=== PATIENT | male | born 1990 | race Caucasian/White ===

== ENCOUNTER 2019-12-26 19:15 | Emergency (ER) | payer BC, SELFPAY ==
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
[2019-12-27 02:13] VITALS: BP 154/86; TEMP 98.2; O2SAT 96
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
== END 2019-12-26 21:01 | disposition home or self-care (01) ==
LOC: ER 19:15
DX: S50.811A Abrasion of right forearm, initial encounter (principal); V49.40XA Driver injured in collision with unspecified motor vehicles in traffic accident, initial encounter; Z72.0 Tobacco use
CPT/HCPCS: 70450; 71260; 72125; 74177; 99284; Q9967

== ENCOUNTER 2019-12-26 23:06 | Emergency (ER) | payer SELFPAY ==
--- OUTSIDE RECORDS SUMMARY | 2019-12-26 23:07 | XMS REPORT ---
:1990 [facility] Address [address] [place] [address] Dr. Cervantes [address] [place] [id number] Care Team Providers Name Role Phone Unavailable Unavailable Unavailable Problems This patient has no known problems. Allergies, Adverse Reactions, Alerts This patient has no known allergies or adverse reactions. Medications This patient has no known medications.
--- OUTSIDE RECORDS SUMMARY | 2019-12-26 23:07 | XMS REPORT | Summary of Care ---
:1990 Author Organization [facility] Address [address] [place] [id number] Care Team Providers Name Role Phone Pcp, Patient Does Not Have A Primary Care Provider Reason for Visit Reason Comments Cough x 2days Body Aches Chills Encounter Details Date Type Department Care Team Description 12/10/2019 Urgent Care [facility] Unknown, Attending Influenza B (Primary Dx); Urgent Care Robyn Chin PA-C [address] [place] [address] [address] [place] [address] Fever, unspecified fever cause [address] [facility] [place] [address] Allergies No Known Allergiesdocumented as of this encounter (statuses as of 12/10/2019) Medications Medication Sig Dispensed Refills Start Date End Date Status oseltamivir 75 mg Take 1 capsule 10 capsule 0 12/10/2019 12/15/2019 Active capsuleIndications: by mouth 2 (two) Fever, unspecified times daily for fever cause, 5 days. Influenza B documented as of this encounter (statuses as of 12/10/2019) Active Problems No known active problemsdocumented as of this encounter (statuses as of 2019) Social History Tobacco Use Types Packs/Day Years Used Date Current Some Day Smoker Cigarettes Smokeless Tobacco: Never Used Alcohol Use Drinks/Week oz/Week Comments No Sex Assigned at Date Recorded Not on file Job Start Date Occupation Industry Not on file Not on file Not on file Travel History Travel Start Travel End No recent travel history available. documented as of this encounter Last Filed Vital Signs Vital Sign Reading Time Taken Comments Blood Pressure 152/75 12/10/2019 9:08 PM [employer] Pulse 94 12/10/2019 9:08 PM [employer] Temperature 37.1 C (98.8 F) 12/10/2019 9:08 PM [employer] Respiratory Rate 17 12/10/2019 9:08 PM [employer] Oxygen Saturation 97% 12/10/2019 9:08 PM [employer] Inhaled Oxygen Concentration - - Weight 79.2 kg (174 lb 8 oz) 12/10/2019 9:08 PM [employer] Height 175.3 cm (5' 9") 12/10/2019 9:08 PM [employer] Body Mass Index 25.77 12/10/2019 9:08 PM [employer] documented in this encounter Patient Instructions Patient InstructionsRobyn Chin PA-C - 12/10/2019 9:00 PM CST Viral Upper Respiratory Illness (Adult) You have a viral upper respiratory illness (URI), which is another term for the common cold. This illness is contagious during the first few days. It is spread through the air by coughing and sneezing.It may also be spread by direct contact (touching the sick person and then touching your own eyes, nose, or mouth). Frequent handwashing will decrease risk of spread. Most viral illnesses go away within 7 to 10 days with rest and simple home remedies. Sometimes the illness may last for several weeks. Antibiotics will not kill a virus, and they are generally not prescribed for this condition. Home care If symptoms are severe, rest at home for the first 2 to 3 days. When you resume activity, don't let yourself get too tired. Don't smoke. If you need help stopping, talk with your healthcare provider. Avoid being exposed to cigarette smoke (yours or others). You may use acetaminophen or ibuprofen to control pain and fever, unless another medicine was prescribed.If you have chronic liver or kidney disease, have ever had a stomach ulcer or gastrointestinal bleeding, or are taking blood- thinning medicines, talk with your healthcare provider before usingthese medicines. Aspirin should never be given to anyone under 18 years of age who is ill with a viral infection or fever. It may cause severe liver or brain damage. Your appetite may be poor, so a light diet is fine. Stay well hydrated by drinking 6 to 8 glassesof fluids per day (water, soft drinks, juices, tea, or soup). Extra fluids will help loosen secretions in the nose and lungs. Butu-icu-lrqhryp cold medicines will not shorten the length of time youre sick, but they may be helpful for the following symptoms: cough, sore throat, and nasal and sinus congestion. If you takeprescription medicines, ask your healthcare provider or pharmacist which nqii-was-ohjioex medicines are safe to use. (Note: Don't use decongestants if you have high blood pressure.) Follow-up care Follow up with your healthcare provider, or as advised. When to seek medical advice Call your healthcare provider right away if any of these occur: Cough with lots of colored sputum (mucus) Severe headache; face, neck, or ear pain Difficultyswallowingdue to throat pain Fever of 100.4F (38C) or higher, or as directed by your healthcare provider Call 911 Call 911 if any of these occur: Chest pain, shortness of breath, wheezing, or difficulty breathing Coughing up blood Very severe pain with swallowing, especially if it goes along with a muffled voice [employer] last reviewed this educational content on 04/03/201819993606-3828 [employer]. [address] [place] [address]. All rights reserved. This information is not intended as a substitute for professional medical care. Always follow your healthcare professional's instructions. Influenza (Adult) Influenza is also called the flu. It's a viral illness that affects the air passages of your lungs. It's different from the common cold. The flu can easily be passed from one to person to another. It may be spread through the air by coughing and sneezing. Or it can be spread by touching the sick person and then touching your own eyes, nose, or mouth. The flu starts 1 to 3 days after you are exposed to the flu virus. It may last for 1 to 2 weeks butsometimes people feel tired or fatigued for many weeks afterward. You usually dont need to take antibiotics unless you are at high risk for or have a complication . This might be an ear or sinus infection or pneumonia. Symptoms of the flu may be mild or severe. They can include extreme tiredness ( wanting to stay in bed all day), chills, fevers, muscle aches, soreness with eye movement, headache, and a dry, hacking cough. Antiviral medicine for the flu is available by prescription. If you start taking it within 48 hours,it may help reduce how long your symptoms last and how severe they are. Your provider may do a test to find out if you have influenza and which strain you have. Home care Follow these guidelines when caring for yourself at home: Stay away from cigarette smoke, whether yours or other peoples. Acetaminophen or ibuprofen will help ease your fever, muscle aches, and headache. Dont give aspirin to anyone younger than 18 who has the flu. This can cause a serious condition called Kareem syndrome. Nausea, loose stools, and loss of appetite are common with the flu. Eat light meals. Drink 6 to 8glasses of liquids every day. Good choices are water, sport drinks, soft drinks without caffeine, juices, tea, and soup. Extra fluids will also help loosen secretions in your nose and lungs. Ydro-ylh-ayzjzde cold medicines will not make the flu go away faster. But the medicines may help with coughing, sore throat, and congestion in your nose and sinuses. Dont use a decongestant if you have high blood pressure. Stay home until your fever has been gone for at least 24 hours without using medicine to reduce fever. Follow-up care Follow up with your healthcare provider, or as advised, if you are not getting better over the next week. If you are age 65 or older, talk with your provider about getting a pneumococcal vaccine every 5 years. You should also get this vaccine if you have chronic asthma or COPD. All adults should get a flu vaccine every fall. Ask your provider about this. When to seek medical advice Call your healthcare provider right away if you have the flu and any of these occur: Cough with lots of colored mucus (sputum) or blood in your mucus Chest pain, shortness of breath, wheezing, or trouble breathing Severe headache, or face, neck, or ear pain New rashwith fever Fever of 100.4F (38C)or higher, or asdirected by your healthcare provider Confusion, behavior change, or seizure Severe weakness or dizziness You get a newfever or cough after getting better for a few days Also call your provider if you have flu symptoms and have a weakened immune system or are taking medicines that can weaken your immune system. These include steroids and certain anti-inflammatory medicines. [employer] last reviewed this educational content on 08/03/201919991003-2116 [employer]. [address] [place] [address], [place] [address]. All rights reserved. This information is not intended as a substitute for professional medical care. Always follow your healthcare professional's instructions. GRADER documented in this encounter Progress Notes Robyn Chin PA-C - 12/10/2019 9:00 PM CST Cc: Chief Complaint Patient presents with Cough x 2days Body Aches Chills Akbar Vadim Hidalgo is a 29 year old male coming in with concern of body aches, chills, and cough that began 2 days ago. Patient is uncertain if he has a fever due to not having a thermometer. Patient denies any sick contacts. Patient reports having some vomiting and nausea. Patient denies diarrhea. Patient denies any ear pain, sob, chest pain, dyspnea. Patient has not taken any medications. HPI Allergies Akbar has No Known Allergies. Medications No outpatient medications prior to visit. No facility-administered medications prior to visit. Histories No past medical history on file. No past surgical history on file. Social History Socioeconomic History Marital status: Spouse name: Not on file Number of children: Not on file Years of education: Not on file Highest education level: Not on file Occupational History Not on file Social Needs Financial resource strain: Not on file Food insecurity: Worry: Not on file Inability: Not on file Transportation needs: Medical: Not on file Non-medical: Not on file Tobacco Use Smoking status: Current Some Day Smoker Types: Cigarettes Smokeless tobacco: Never Used Substance and Sexual Activity Alcohol use: No Drug use: No Sexual activity: Not on file Lifestyle Physical activity: Days per week: Not on file Minutes per session: Not on file Stress: Not on file Relationships Social connections: Talks on phone: Not on file Gets together: Not on file Attends [employer] service: Not on file Active member of club or organization: Not on file Attends meetings of clubs or organizations: Not on file Relationship status: Not on file Intimate partner violence: Fear of current or ex partner: Not on file Emotionally abused: Not on file Physically abused: Not on file Forced sexual activity: Not on file Other Topics Concern Not on file Social History Narrative Not on file Family History Problem Relation Age of Onset No Significant Medical Problems Mother Heart Father Hypertension Father [place] (myocardial infarction) Father Review of Systems Constitutional: Positive for chills. Negative for fatigue and fever. HENT: Negative for congestion, ear pain, rhinorrhea, sinus pressure, sneezing and sore throat. Eyes: Negative for pain. Respiratory: Positive for cough. Negative for chest tightness, shortness of breath and wheezing. Gastrointestinal: Positive for nausea and vomiting. Negative for abdominal pain , constipation and diarrhea. Genitourinary: Negative for dysuria. Musculoskeletal: Negative for arthralgias. Skin: Negative for rash. Neurological: Negative for weakness and headaches. Psychiatric/Behavioral: Negative for suicidal ideas. The patient is not nervous/ anxious. Vital Signs BP (!) 152/75 | Pulse 94 | Temp 37.1 C (98.8 F) (Oral) | Resp 17 | Ht 5 ' 9" (1.753 m) | Wt 174 lb 8 oz (79.2 kg) | SpO2 97% | BMI 25.77 kg/m Physical Exam Constitutional: He appears well-developed and well-nourished. HENT: Head: Normocephalic and atraumatic. Right Ear: External ear normal. Left Ear: External ear normal. Nose: Mucosal edema and rhinorrhea present. Mouth/Throat: Posterior oropharyngeal edema and posterior oropharyngeal erythema present. Eyes: Pupils are equal, round, and reactive to light. Conjunctivae are normal. Neck: Normal range of motion. Cardiovascular: Normal rate, regular rhythm and normal heart sounds. Pulmonary/Chest: Effort normal and breath sounds normal. Abdominal: Soft. Psychiatric: He has a normal mood and affect. Assessment/Plan Influenza B (primary encounter diagnosis) Fever, unspecified fever cause Plan: POCT FLU A AND B (MOLECULAR) Rx tamiflu - Discussed flu results & treatment plan with pt. All questions & concerns were addressed. - Pt advised to perform good frequent hand hygiene with soap and water, or use alcohol hand rubs, - Pt advised to stay away from people you know are sick - Pt advised of benefit/risk associated with getting the flu vaccine every year - Pt advised to stay home, get plenty of rest, and drink plenty of fluids. - Reviewed with patient potential side effects, drug interactions, risk, and benefits of taking prescriptions as ordered as prescribed - Pt was advised that he/she can take Tylenol or ibuprofen to relieve fever and aches as per label recommendations. - Pt advised to follow-up with the PCP within 1 week or sooner. Stressed importance of follow-up. - Pt advised to return to Urgent Care or to go to the nearest Emergency Department for any new, worsening, persistent, or concerning symptoms. - Pt verbalized understanding of all instructions. This visit did not involve counseling and coordination that comprised more than 50% of the visit time. Robyn Chin PA-C 12/10/2019 9:13 PM Jolene Simpson RN - 12/10/2019 9:00 PM CST Akbar Hidalgo is a 29 year old male in office for the following: Chief Complaint Patient presents with Cough x 2days Body Aches Chills took a Tylenol and Tamiflu before arrival to urgent care. All vitals taken. Allergies reviewed. All medications reviewed. Fall risk assessed. Level of pain 0. [facility] #[id number] - [address] [place] [facility] [employer] [place] Jolene Castrejon RN 12/10/2019 9:10 PM documented in this encounter Plan of Treatment Health Maintenance Due Date Last Done Comments VARICELLA VACCINES (1 of 2 - 2-dose childhood series) 1993 PNEUMOCOCCAL 0-64 YEARS COMBINED SERIES (1 of 1 - 1998 PPSV23) DTaP,Tdap,and Td Vaccines (1 - Tdap) 2003 INFLUENZA VACCINE (#1) 2019 documented as of this encounter Procedures Procedure Name Priority Date/Time Associated Diagnosis Comments POCT FLU A AND B Routine 12/10/2019 9:10 PM Fever, unspecified Results for this (MOLECULAR) [employer] fever cause procedure are in the results section. documented in this encounter Results POCT FLU A AND B (MOLECULAR) (12/10/2019 9:10 PM DOCK [employer]ER) POCT INFLUENZA A n/a Negative - Negative POCT INFLUENZA B pos Negative - Negative Specimen Swab Narrative Performed At [facility] and interpretation of all internal controls documented in this encounter Visit Diagnoses Diagnosis Influenza B - Primary Influenza with other respiratory manifestations Fever, unspecified fever cause documented in this encounter
[2019-12-27] MEDS ORDERED: HYDROCODONE/APAP 5/325 MG TAB ONE (01:17)
[2019-12-27] MEDS ORDERED: ONDANSETRON 4 MG (ODT) TAB ONE (01:17)
[2019-12-27] MEDS ORDERED: CYCLOBENZAPRINE 10 MG TAB ONE (01:17)
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
[2019-12-27 05:13] VITALS: TEMP 98.2
[2019-12-27 05:15] VITALS: BP 130/71; O2SAT 99
== END 2019-12-27 01:51 | disposition home or self-care (01) ==
LOC: ER 23:06
DX: R10.30 Lower abdominal pain, unspecified (principal); R19.7 Diarrhea, unspecified; V89.2XXA Person injured in unspecified motor-vehicle accident, traffic, initial encounter; Z72.0 Tobacco use
CPT/HCPCS: 99284

== ENCOUNTER 2019-12-30 20:21 | Emergency (ER) | payer SELFPAY ==
--- OUTSIDE RECORDS SUMMARY | 2019-12-30 20:23 | XMS REPORT ---
:1990 Author Organization [facility] Address [address] [place] [address] Dr. Cervantes [address] [place] [id number] Care Team Providers Name Role Phone Unavailable Unavailable Unavailable Problems This patient has no known problems. Allergies, Adverse Reactions, Alerts This patient has no known allergies or adverse reactions. Medications This patient has no known medications.
[2019-12-30] MEDS ORDERED: ONDANSETRON 4 MG/2 ML VIAL ONE ×2 (21:24→23:15)
[2019-12-30] MEDS ORDERED: NA CHLORIDE 0.9% 1,000 ML ONE (21:24)
[2019-12-30 21:50] LABS: Absolute Lymphocytes (CBC) 1.1 K/uL (0.7-4.9); Basophils % 0.6 % (0-1.3); Hematocrit 46.3 % (39.6-49.0); Lymphocytes % 12.3 % (15.3-44.8); RBC Red Blood Cell Count 5.26 M/uL (4.33-5.43)
[2019-12-30 22:18] LABS: ALT/SGPT 46 U/L (12-78); Albumin 4.4 g/dL (3.4-5.0); Alkaline Phosphatase 60 U/L (45-117); BUN Blood Urea Nitrogen 14 mg/dL (7-18); Bicarbonate 27 mmol/L (21-32); Bilirubin Direct < 0.1 mg/dL (0-0.2); Bilirubin Total 0.5 mg/dL (0.2-1.0); Glucose Level 98 mg/dL (74-106); Lipase 95 U/L (73-393); Protein, Total 8.4 g/dL (6.4-8.2); Sodium Level 139 mmol/L (136-145)
[2019-12-30 22:19] LABS: AST/SGOT 21 U/L (15-37); Potassium 3.5 mmol/L (3.5-5.1)
[2019-12-30] MEDS ORDERED: MORPHINE 4 MG/ML SYR ONE (23:14)
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
--- NOTE | 2019-12-30 23:25 | ER ---
Nurse's Notes [facility] Name: Akbar Hidalgo Age: 29 yrs Sex: Male : 1990 Arrival Date: 12/30/2019 Time: 20:22 Bed 8 Private MD: Diagnosis: Concussion;Post-traumatic headache, unspecified Presentation: 12/30 20:30 Chief complaint: Patient states: i am having right side headache, dizziness, blurry rr5 vision, Nausea, vomiting , stomach pain, hot flushes started last Friday but it gets worse. went here prescribed medications and did CT scan (Brain and stomach) it showed enlarged spleen. 20:30 Coronavirus screen: The patient has NOT traveled to [place] in the past 14 days. Proceed rr5 with normal triage procedures. Ebola Screen: Patient negative for fever greater than or equal to 101.5 degrees Fahrenheit, and additional compatible Ebola Virus Disease symptoms Patient denies exposure to infectious person. Patient denies travel to an Ebola-affected area in the 21 days before illness onset. Initial Sepsis Screen: Does the patient meet any 2 criteria? No. Patient's initial sepsis screen is negative. Does the patient have a suspected source of infection? No. Patient's initial sepsis screen is negative. Risk Assessment: Do you want to hurt yourself or someone else? Patient reports no desire to harm self or others. 20:30 Method Of Arrival: Ambulatory rr5 20:30 Acuity: NARENDRA 3 rr5 20:30 Onset of symptoms was December 2019. rr5 Historical: - Allergies: 20:30 Biaxin; rr5 - Home Meds: 20:30 None [Active]; rr5 - PMHx: 20:30 None; rr5 - PSHx: 20:30 None; rr5 - Immunization history:: Adult Immunizations up to date. - Social history:: Smoking status: Patient reports the use of cigarette tobacco products, denies chronic smoking, but will smoke occasionally, Patient uses alcohol, occasionally. Patient/guardian denies using street drugs. Screenin:46 Abuse screen: Denies threats or abuse. Denies injuries from another. Nutritional rr5 screening: No deficits noted. Tuberculosis screening: No symptoms or risk factors identified. Fall Risk IV access (20 points). Total Aly Fall Scale indicates No Risk (0-24 pts). Assessment: 20:30 General: Appears in no apparent distress. uncomfortable, Behavior is calm, cooperative. rr5 Pain: Complains of pain in head and abdomen Pain does not radiate. Pain currently is 7 out of 10 on a pain scale. Quality of pain is described as aching, Pain began gradually, Is intermittent. 20:30 Neuro: Level of Consciousness is awake, alert, obeys commands, Oriented to person, rr5 place, time, situation, Appropriate for age Reports blurred vision dizziness, headache hot flushes. Cardiovascular: Capillary refill < 3 seconds Patient's skin is warm and dry. Respiratory: Airway is patent Respiratory effort is even, unlabored, Respiratory pattern is regular, symmetrical. GI: Abdomen is flat, Reports lower abdominal pain, upper abdominal pain, cramping, nausea, vomiting. : No signs and/or symptoms were reported regarding the genitourinary system. EENT: No signs and/or symptoms were reported regarding the EENT system. Derm: Skin is intact, is healthy with good turgor, Skin temperature is warm. Musculoskeletal: Circulation, motion, and sensation intact. Capillary refill < 3 seconds. 22:00 Reassessment: Patient appears in no apparent distress at this time. Patient and/or rr5 family updated on plan of care and expected duration. Pain level reassessed. Patient is alert, oriented x 3, equal unlabored respirations, skin warm/dry/pink. awaiting for CT result. 23:00 Reassessment: Patient appears in no apparent distress at this time. complaints of rr5 headache on and off. ED provider aware with order made and carried out. 23:23 Reassessment: Patient appears in no apparent distress at this time. Patient is alert, rr5 oriented x 3, equal unlabored respirations, skin warm/dry/pink. review done by ED provider, explained the plan of care to patient and agreed to it. 23:53 Reassessment: Patient appears in no apparent distress at this time. Patient is alert, rr5 oriented x 3, equal unlabored respirations, skin warm/dry/pink. discharge instruction given and explained without complaints made. Patient denies pain at this time. Patient states feeling better. Patient states symptoms have improved. Vital Signs: 20:30 BP 138 / 110; Pulse 93; Resp 20; Temp 97.8; Pulse Ox 99% ; Weight 77.11 kg; Height 5 rr5 ft. 9 in. (175.26 cm); Pain 7/10; 22:00 BP 134 / 79; Pulse 88; Resp 17; Pulse Ox 99% ; rr5 23:10 BP 141 / 92; Pulse 78; Resp 16; Pulse Ox 99% ; rr5 23:53 BP 131 / 70; Pulse 75; Resp 19; Temp 97.9; Pulse Ox 99% ; Pain 0/10; rr5 20:30 Body Mass Index 25.10 (77.11 kg, 175.26 cm) rr5 Haven Coma Score: 12/31 01:03 Eye Response: spontaneous(4). Verbal Response: oriented(5). Motor Response: obeys kb commands(6). Total: 15. 01:04 Eye Response: spontaneous(4). Verbal Response: oriented(5). Motor Response: obeys kb commands(6). Total: 15. ED Course: 12/30 20:22 Patient arrived in ED. ag3 20:30 Arm band placed on right wrist. rr5 20:30 Patient has correct armband on for positive identification. Placed in gown. Bed in low rr5 position. Call light in reach. Pulse ox on. NIBP on. 20:34 Devin Kahn RN is Primary Nurse. rr5 20:38 Triage completed. rr5 21:35 Inserted saline lock: 18 gauge in left antecubital area, using aseptic technique. Blood ds4 collected. 21:46 Daysi Chappell [facility]C [facility]. kb 21:46 Michael Puckett MD is Attending Physician. kb 22:09 CT Head C Spine In Process Unspecified. EDMS 23:54 No provider procedures requiring assistance completed. IV discontinued, intact, rr5 bleeding controlled, No redness/swelling at site. Pressure dressing applied. Administered Medications: 21:40 Drug: NS 0.9% 1000 ml Route: IV; Rate: 1000 ml; Site: left antecubital; rr5 23:00 Follow up: Response: No adverse reaction; IV Status: Completed infusion; IV Intake: rr5 1000ml 21:41 Drug: Zofran (Ondansetron) 4 mg Route: IVP; Site: left antecubital; rr5 22:30 Follow up: Response: No adverse reaction; Marked relief of symptoms rr5 23:10 Drug: Zofran (Ondansetron) 4 mg Route: IVP; Site: left antecubital; rr5 23:55 Follow up: Response: No adverse reaction; Marked relief of symptoms rr5 23:12 Drug: morphine 4 mg {Note: rass 0.} Route: IVP; Site: left antecubital; rr5 23:55 Follow up: Response: No adverse reaction; Marked relief of symptoms; Pain is decreased; rr5 RASS: Alert and Calm (0) Intake: 23:00 IV: 1000ml; Total: 1000ml. rr5 Outcome: 23:22 Discharge ordered by . bhanu 23:54 Discharged to home ambulatory, with family, with friend. rr5 23:54 Condition: stable 23:54 Discharge instructions given to patient, Instructed on discharge instructions, follow up and referral plans. medication usage, Demonstrated understanding of instructions, follow-up care, medications, Prescriptions given X 1. 23:56 Patient left the ED. rr5 Signatures: Dispatcher [employer] EDMS Daysi Chappell, SASH FINISHER-C SASH FINISHER-Merrick Mustafa4 Rosa Ba3 Devin Kahn, RN RN rr5
[2019-12-31 00:41] VITALS: O2SAT 99
[2019-12-31 00:46] VITALS: BP 131/70; TEMP 97.9
--- NOTE | 2020-01-03 15:18 | RAD REPORT ---
EXAM DESCRIPTION: CT - [id number] - 12/31/2019 1:00 am CLINICAL HISTORY: PAIN TECHNIQUE: Contiguous axial CT images obtained through the brain without IV contrast. Coronal and sa gittal reformatted images were provided. This exam was performed according to our departmental dose-optimization program, which includes autom ated exposure control, adjustment of the mA and/or kV according to patient size and/or use of iterati ve reconstruction technique. COMPARISON: None available for comparison FINDINGS: Brain: No significant white matter changes. No focal mass effect. Vieyra-white matter differ entiation is within normal limits. No hemorrhage. Ventricles: No ventriculomegaly or midline shift. Extra-axial spaces: No extra-axial collection or hemorrhage. Paranasal sinuses and mastoid air cells: Well-aerated Vessels: Unremarkable Bones: Unremarkable Soft tissues: Unremarkable IMPRESSION: No acute intracranial or extra-axial abnormality. EXAM DESCRIPTION: C Spine Wo Con CLINICAL HISTORY: PAIN TECHNIQUE: Contiguous axial CT images obtained through the cervical spine without IV contrast. Coron al and sagittal reformatted images also provided. This exam was performed according to our departmental dose-optimization program, which includes autom ated exposure control, adjustment of the mA and/or kV according to patient size and/or use of iterati ve reconstruction technique. COMPARISON: None available for comparison FINDINGS: Vertebra: No acute fracture or subluxation. Disc spaces: Intervertebral disc spaces are fairly well maintained. No canal stenosis. Foramina appea r patent. Prevertebral soft tissues: Unremarkable Lung apices: Clear IMPRESSION: No acute injury. Electronically signed by: Zuleyka Pack MD 12/30/2019 10:44 PM FORENSIC LOCKSMITH Due to temporary technical issues with the PACS/Fluency reporting system, reports are being signed by the in house radiologist as a courtesy to ensure prompt reporting. The interpreting radiologist is f ully responsible for the content of the report.
== END 2019-12-30 23:56 | disposition home or self-care (01) ==
LOC: ER 20:21
DX: S06.0X9A Concussion with loss of consciousness of unspecified duration, initial encounter (principal); V49.40XA Driver injured in collision with unspecified motor vehicles in traffic accident, initial encounter; F17.210 Nicotine dependence, cigarettes, uncomplicated; Z88.6 Allergy status to analgesic agent
CPT/HCPCS: 36415; 70450; 72125; 80048; 80076; 83690; 85025; 86308; 96361; 96374; 96375; 99284; J2405; J7030

== ENCOUNTER 2020-05-27 00:45 | Emergency (ER) | payer SELFPAY ==
[2020-05-27] MEDS ORDERED: ONDANSETRON 4 MG/2 ML VIAL ONE (01:31)
[2020-05-27] MEDS ORDERED: MORPHINE 4 MG/ML SYR ONE ×2 (01:31→03:36)
[2020-05-27] MEDS ORDERED: NA CHLORIDE 0.9% 1,000 ML ONE (01:32)
[2020-05-27 01:47] LABS: Absolute Lymphocytes (CBC) 1.4 K/uL (0.7-4.9); Basophils % 0.5 % (0-1.3); Hematocrit 47.8 % (39.6-49.0); Lymphocytes % 17.1 % (15.3-44.8); MPV 8.6 fL (7.6-11.3); RBC Red Blood Cell Count 5.61 M/uL (4.33-5.43)
[2020-05-27 01:56] LABS: Albumin 4.9 g/dL (3.4-5.0); Bilirubin Direct 0.1 mg/dL (0-0.2); Bilirubin Total 0.6 mg/dL (0.2-1.0); Potassium 3.8 mmol/L (3.5-5.1); Protein, Total 8.8 g/dL (6.4-8.2)
--- NOTE | 2020-05-27 03:44 | ER ---
Nurse's Notes [facility] Name: Akbar Hidalgo Age: 29 yrs Sex: Male : 1990 Arrival Date: 05/27/2020 Time: 00:46 Bed 6 Private MD: Diagnosis: Abdominal Pain;Diarrhea Presentation: 05/27 00:48 Acuity: NARENDRA 3 sg 00:48 Chief complaint: Patient states: Right side abd pain that feels like pressure or sg someone pushing on the side, reports right side abd pain as well, reports nausea that comes and goes, denies fever/chill/diarrhea at this time. Coronavirus screen: Patient denies a cough. Patient denies shortness of breath or difficulty breathing. Patient denies measured and/or subjective temperature greater than 100.4F prior to today's visit. Patient denies travel on a cruise ship or to a country the [facility] currently lists as an affected area. Patient denies contact with known and/or suspected case of COVID-19. Proceed with normal triage. Ebola Screen: Patient negative for fever greater than or equal to 101.5 degrees Fahrenheit, and additional compatible Ebola Virus Disease symptoms Patient denies exposure to infectious person. Patient denies travel to an Ebola-affected area in the 21 days before illness onset. No symptoms or risks identified at this time. Initial Sepsis Screen: Does the patient meet any 2 criteria? No. Patient's initial sepsis screen is negative. Does the patient have a suspected source of infection? Yes: Acute abdominal pain. Risk Assessment: Do you want to hurt yourself or someone else? Patient reports no desire to harm self or others. Onset of symptoms was May 27, 2020. Care prior to arrival: None. Transition of care: patient was not received from another setting of care. 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 - Social history:: Smoking status: Patient reports the use of cigarette tobacco products, 1-2 sticks per week, Patient/guardian denies using alcohol, street drugs. Screenin:40 Abuse screen: Denies threats or abuse. Denies injuries from another. Nutritional rr5 screening: No deficits noted. Tuberculosis screening: No symptoms or risk factors identified. Fall Risk IV access (20 points). Total Aly Fall Scale indicates No Risk (0-24 pts). Assessment: 01:10 General: Appears in no apparent distress. uncomfortable, Behavior is calm, cooperative, rr5 appropriate for age. Pain: Complains of pain in right lower quadrant Pain radiates to abdomen Pain currently is 10 out of 10 on a pain scale. Quality of pain is described as aching, Pain began gradually, Is intermittent. Neuro: Level of Consciousness is awake, alert, obeys commands, Oriented to person, place, time, situation. Cardiovascular: Capillary refill < 3 seconds Patient's skin is warm and dry. Respiratory: Airway is patent Respiratory effort is even, unlabored, Respiratory pattern is regular, symmetrical. GI: Abdomen is flat, Abdomen is tender to palpation Guarding noted in right lower quadrant Reports lower abdominal pain, diarrhea. : No signs and/or symptoms were reported regarding the genitourinary system. EENT: No signs and/or symptoms were reported regarding the EENT system. Derm: Skin is intact, is healthy with good turgor, Skin temperature is warm. Musculoskeletal: Circulation, motion, and sensation intact. Capillary refill < 3 seconds. 01:51 Reassessment: Patient appears in no apparent distress at this time. Patient is alert, rr5 oriented x 3, equal unlabored respirations, skin warm/dry/pink. Patient denies pain at this time. Patient states feeling better. Patient states symptoms have improved. 02:48 Reassessment: Patient appears in no apparent distress at this time. Patient is alert, rr5 oriented x 3, equal unlabored respirations, skin warm/dry/pink. awaiting for CT result. 03:25 Reassessment: follow up to ct staff for the CT result. GI: Reports lower abdominal rr5 pain, Pain is 10 out of 10 on a pain scale. ED provider aware with order made and carried out. 03:50 Reassessment: Patient appears in no apparent distress at this time. Patient is alert, rr5 oriented x 3, equal unlabored respirations, skin warm/dry/pink. discharge instruction given and explained without complaints made. Patient states feeling better. Patient states symptoms have improved. Vital Signs: 01:00 BP 133 / 87; Pulse 85; Resp 17; Temp 98.7; Pulse Ox 100% ; Pain 10/10; rr5 01:51 BP 122 / 75; Pulse 80; Resp 16; Pulse Ox 99% on R/A; Pain 0/10; rr5 03:04 BP 122 / 69; Pulse 58; Resp 16; Pulse Ox 99% ; rr5 03:50 BP 122 / 76; Pulse 65; Resp 17; Pulse Ox 100% ; Pain 0/10; rr5 ED Course: 00:46 Patient arrived in ED. ds1 00:48 Arm band placed on. sg 00:49 Triage completed. sg 00:50 Devin Kahn, RN is Primary Nurse. rr5 00:57 Warren Billings MD is Attending Physician. mh7 01:10 Patient has correct armband on for positive identification. Bed in low position. Call rr5 light in reach. Pulse ox on. NIBP on. 01:15 No provider procedures requiring assistance completed. Urine collected: clean catch rr5 specimen, clear. 01:25 Inserted saline lock: 20 gauge in right antecubital area, using aseptic technique. rr5 Blood collected. 02:35 CT Abd/Pelvis - IV Contrast Only In Process Unspecified. EDMS 03:50 IV discontinued, intact, bleeding controlled, No redness/swelling at site. Pressure rr5 dressing applied. Administered Medications: 01:36 Drug: NS 0.9% 1000 ml Route: IV; Rate: 1000 ml; Site: right antecubital; rr5 02:40 Follow up: Response: No adverse reaction; IV Status: Completed infusion; IV Intake: rr5 1000ml 01:36 Drug: Zofran (Ondansetron) 4 mg Route: IVP; Site: right antecubital; rr5 02:30 Follow up: Response: No adverse reaction rr5 01:38 Drug: morphine 4 mg {Note: rass 0.} Route: IVP; Site: right antecubital; rr5 02:30 Follow up: Response: No adverse reaction; Pain is decreased; RASS: Alert and Calm (0) rr5 03:29 Drug: morphine 4 mg {Note: rass 0.} Route: IVP; Site: right antecubital; rr5 03:51 Follow up: Response: No adverse reaction; Pain is decreased; RASS: Alert and Calm (0) rr5 Intake: 02:40 IV: 1000ml; Total: 1000ml. rr5 Outcome: 03:44 Discharge ordered by . berry 03:50 Discharged to home ambulatory. rr5 03:50 Condition: stable 03:50 Discharge instructions given to patient, Instructed on discharge instructions, follow up and referral plans. medication usage, Demonstrated understanding of instructions, follow-up care, medications, Prescriptions given X 2. 03:56 Patient left the ED. rr5 Signatures: Dispatcher [employer] EDMS Waylon Zimmerman RN RN Shaylee Hanson ds1 Devin Kahn RN RN rr5 Warren Billings MD MD mh7
--- NOTE | 2020-05-27 03:44 | EDPHYS ---
Physician Documentation [facility] Name: Akbar Hidalgo Age: 29 yrs Sex: Male : 1990 Arrival Date: 05/27/2020 Time: 00:46 Bed 6 Private MD: ED Physician Warren Billings HPI: 05/27 01:29 This 29 yrs old Male presents to ER via Ambulatory with complaints of R Side mh7 Pain Abd Pain. 01:29 The patient presents with abdominal pain right lower quadrant. Onset: The mh7 symptoms/episode began/occurred today. The symptoms do not radiate. Associated signs and symptoms: Pertinent positives: diarrhea, Pertinent negatives: nausea and vomiting, anorexia, blood in stools, chest pain, constipation, dysuria, fever, headache, hematuria, palpitations, shortness of breath, testicular pain, vomiting, vomiting blood. The symptoms are described as intermittent, sharp, waxing/waning. Modifying factors: The symptoms are alleviated by nothing, the symptoms are aggravated by nothing. Severity of pain: At its worst the pain was moderate today, in the emergency department the pain has improved moderately. 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 - Social history:: Smoking status: Patient reports the use of cigarette tobacco products, 1-2 sticks per week, Patient/guardian denies using alcohol, street drugs. ROS: 01:29 Constitutional: Negative for fever, chills, and weight loss, Eyes: Negative for injury, mh7 pain, redness, and discharge, ENT: Negative for injury, pain, and discharge, Neck: Negative for injury, pain, and swelling, Cardiovascular: Negative for chest pain, palpitations, and edema, Respiratory: Negative for shortness of breath, cough, wheezing, and pleuritic chest pain, Back: Negative for injury and pain, : Negative for injury, bleeding, discharge, and swelling, MS/Extremity: Negative for injury and deformity, Skin: Negative for injury, rash, and discoloration, Neuro: Negative for headache, weakness, numbness, tingling, and seizure, Psych: Negative for depression, anxiety, suicide ideation, homicidal ideation, and hallucinations, Allergy/Immunology: Negative for hives, rash, and allergies, Endocrine: Negative for neck swelling, polydipsia, polyuria, polyphagia, and marked weight changes, Hematologic/Lymphatic: Negative for swollen nodes, abnormal bleeding, and unusual bruising. Exam: :29 Constitutional: This is a well developed, well nourished patient who is awake, alert, mh7 and in no acute distress. Head/Face: Normocephalic, atraumatic. Eyes: Pupils equal round and reactive to light, extra-ocular motions intact. Lids and lashes normal. Conjunctiva and sclera are non-icteric and not injected. Cornea within normal limits. Periorbital areas with no swelling, redness, or edema. Neck: Trachea midline, no thyromegaly or masses palpated, and no cervical lymphadenopathy. Supple, full range of motion without nuchal rigidity, or vertebral point tenderness. No Meningismus. Chest/axilla: Normal chest wall appearance and motion. Nontender with no deformity. No lesions are appreciated. Cardiovascular: Regular rate and rhythm with a normal S1 and S2. No gallops, murmurs, or rubs. Normal PMI, no JVD. No pulse deficits. Respiratory: Lungs have equal breath sounds bilaterally, clear to auscultation and percussion. No rales, rhonchi or wheezes noted. No increased work of breathing, no retractions or nasal flaring. :29 Back: No spinal tenderness. No costovertebral tenderness. Full range of motion. Skin: Warm, dry with normal turgor. Normal color with no rashes, no lesions, and no evidence of cellulitis. MS/ Extremity: Pulses equal, no cyanosis. Neurovascular intact. Full, normal range of motion. Neuro: Awake and alert, GCS 15, oriented to person, place, time, and situation. Cranial nerves II-XII grossly intact. Motor strength 5/5 in all extremities. Sensory grossly intact. Cerebellar exam normal. Normal gait. Psych: Awake, alert, with orientation to person, place and time. Behavior, mood, and affect are within normal limits. 01:29 Abdomen/GI: Inspection: abdomen appears normal, Bowel sounds: normal, in all quadrants, Palpation: moderate abdominal tenderness, in the right lower quadrant, Rectal exam: the exam is deferred, because of patient request, Indicators: McBurney's point is not tender, Ramirez's sign is negative, Rovsing's sign is negative, Obturator sign is negative, Psoas sign is negative, Liver: no appreciated palpable abnormalities, Hernia: not appreciated. Vital Signs: 01:00 BP 133 / 87; Pulse 85; Resp 17; Temp 98.7; Pulse Ox 100% ; Pain 10/10; rr5 01:51 BP 122 / 75; Pulse 80; Resp 16; Pulse Ox 99% on R/A; Pain 0/10; rr5 03:04 BP 122 / 69; Pulse 58; Resp 16; Pulse Ox 99% ; rr5 03:50 BP 122 / 76; Pulse 65; Resp 17; Pulse Ox 100% ; Pain 0/10; rr5 MDM: 01:17 Patient medically screened. [facility] 03:41 Differential diagnosis: appendicitis, bowel obstruction, Cholelithiasis, [facility] diverticulitis, non-specific abd pain, Ureterolithiasis. Data reviewed: vital signs, nurses notes, lab test result(s), CBC, electrolytes, urinalysis, radiologic studies, CT scan. Data interpreted: Pulse oximetry: on room air is 99 %. Interpretation: normal. Counseling: I had a detailed discussion with the patient and/or guardian regarding: the historical points, exam findings, and any diagnostic results supporting the discharge/admit diagnosis, lab results, radiology results, the need for outpatient follow up, to return to the emergency department if symptoms worsen or persist or if there are any questions or concerns that arise at home. Response to treatment: the patient's symptoms have resolved after treatment, the patient's blood pressure is in an acceptable range, mental status has returned to baseline, the patient no longer shows bradycardia, the patient is not short of breath, the patient is not tachycardic, the patient's pain is gone, the patient's temperature has normalized. 05/27 01:18 Order name: Basic Metabolic Panel; Complete Time: 02: [facility] 05/27 01:18 Order name: CBC with Diff; Complete Time: 02: [facility] 05/27 01:18 Order name: Hepatic Function; Complete Time: 02: [facility] 05/27 01:18 Order name: Lipase; Complete Time: 02: [facility] 05/27 01:20 Order name: CT Abd/Pelvis - IV Contrast Only [facility] 05/27 02:06 Order name: CREATININE WHOLE BLOOD; Complete Time: 02:34 [facility] 05/27 01:18 Order name: IV Saline Lock; Complete Time: [facility] 05/27 01:18 Order name: Labs collected and sent; Complete Time: [facility] 05/27 01:18 Order name: Urine Dipstick-Ancillary (obtain specimen); Complete Time: :39 [facility] Administered Medications: 01:36 Drug: NS 0.9% 1000 ml Route: IV; Rate: 1000 ml; Site: right antecubital; rr5 02:40 Follow up: Response: No adverse reaction; IV Status: Completed infusion; IV Intake: rr5 1000ml 01:36 Drug: Zofran (Ondansetron) 4 mg Route: IVP; Site: right antecubital; rr5 02:30 Follow up: Response: No adverse reaction rr5 01:38 Drug: morphine 4 mg {Note: rass 0.} Route: IVP; Site: right antecubital; rr5 02:30 Follow up: Response: No adverse reaction; Pain is decreased; RASS: Alert and Calm (0) rr5 03:29 Drug: morphine 4 mg {Note: rass 0.} Route: IVP; Site: right antecubital; rr5 03:51 Follow up: Response: No adverse reaction; Pain is decreased; RASS: Alert and Calm (0) rr5 Disposition: 05/27/20 03:44 Discharged to Home. Impression: Abdominal Pain, Diarrhea. - Condition is Stable. - Discharge Instructions: Abdominal Pain, Adult, Puba-[id number], Diarrhea, Adult, [id number]. - Prescriptions for Bentyl 20 mg Oral Tablet - take 1 tablet by ORAL route every 6 hours As needed; 20 tablet. Cipro 500 mg Oral Tablet - take 1 tablet by ORAL route every 12 hours for 5 days; 10 tablet. - Medication Reconciliation Form, Thank You Letter, Antibiotic Education, Prescription Opioid Use form. - Follow up: Private Physician; When: 2 - 3 days; Reason: Worsening of condition, Recheck today's complaints, Continuance of care, Re-evaluation by your physician. - Problem is new. - Symptoms have improved. Signatures: Dispatcher [employer] Waylon Roberts RN RN Devin Kahn RN RN rr5 Warren Billings MD MD mh7 Corrections: (The following items were deleted from the chart) 03:56 03:44 05/27/2020 03:44 Discharged to Home. Impression: Abdominal Pain; Diarrhea. rr5 Condition is Stable. Forms are Medication Reconciliation Form, Thank You Letter, Antibiotic Education, Prescription Opioid Use. Follow up: Private Physician; When: 2 - 3 days; Reason: Worsening of condition, Recheck today's complaints, Continuance of care, Re-evaluation by your physician. Problem is new. Symptoms have improved. mh7
[2020-05-27 04:10] VITALS: TEMP 98.7
[2020-05-27 04:14] VITALS: BP 122/76; O2SAT 100
--- NOTE | 2020-05-29 09:11 | RAD REPORT ---
EXAM DESCRIPTION: CT - Abdomen Pelvis W Contrast - 05/27/2020 4:50 am CLINICAL HISTORY: ABD PAIN COMPARISON: None Available. TECHNIQUE: CT of the abdomen and pelvis performed following IV administration of iodinated contras t. 12/26/2019 FINDINGS: Lung Bases: The visualized lung bases are clear. Bones: Bilateral L4 pars defects. Abdomen: Liver: The liver has normal size and density. No intrahepatic biliary dilatation. Gallbladder: No calcified gallstones. Spleen, Pancreas, and Adrenal Glands: Splenomegaly. Pancreas and adrenal glands are unremarkable. Kidneys: No hydronephrosis or obstructing calculus. Vasculature: The aorta and IVC have normal caliber and position. The portal vein is patent. The pro ximal visceral and renal arteries are patent. Stomach: The stomach and duodenum have normal course. Other: No free intraperitoneal air. No free fluid or lymphadenopathy. Pelvis: Bladder: Urinary bladder is unremarkable. Bowel: No dilated loops of large or small bowel. Distal colon is nondistended. Appendix: Normal appendix. Pelvis: Prostate is not enlarged. IMPRESSION: 1. No acute inflammatory or obstructive process identified. 2. Stable splenomegaly. This exam was performed according to our departmental dose-optimization program, which includes autom ated exposure control, adjustment of the mA and/or kV according to patient size and/or use of iterati ve reconstruction technique. Electronically signed by: Horaec Guzman 05/27/2020 3:28 AM CDT Due to temporary technical issues with the PACS/Fluency reporting system, reports are being signed by the in house radiologist without review as a courtesy to ensure prompt reporting. The interpreting r adiologist is fully responsible for the content of the report.
== END 2020-05-27 03:56 | disposition home or self-care (01) ==
LOC: ER 00:45
DX: R19.7 Diarrhea, unspecified (principal); F17.290 Nicotine dependence, other tobacco product, uncomplicated; Z88.1 Allergy status to other antibiotic agents; Z88.6 Allergy status to analgesic agent
CPT/HCPCS: 36415; 74177; 80048; 80076; 82565; 83690; 85025; 96361; 96374; 96375; 99284; J2405; J7030; Q9967

== ENCOUNTER 2021-03-24 12:49 | Emergency (ER) | payer SELFPAY ==
--- OUTSIDE RECORDS SUMMARY | 2021-03-24 12:52 | XMS REPORT | Continuity of Care Document ---
:1990 Author Organization [facility] t Address [address] [place] [address] Care Team Providers Name Role Phone Lab, Fam Pob I Attending Clinician Unavailable Elsy OLIVO Attending Clinician Problems This patient has no known problems. Allergies, Adverse Reactions, Alerts This patient has no known allergies or adverse reactions. Medications This patient has no known medications. Procedures This patient has no known procedures. Encounters Start End Encounter Admission Attending Care Care Encounter Source Date/Time Date/Time Type Type Clinicians Facility Department ID 2021-01-04 2021-01-04 Laboratory Lab, [facility] [id number] 11:04:20 11:24:20 Only Fam Pob I Health [id number] [place] [id number] Professio [id number] [address] 2019-12-10 2019-12-10 Urgent Elsy [facility] [id number] 21:02:52 21:17:52 Care [facility] [id number] Surgical [id number] Specialti [phone] [address] [place] Results This patient has no known results.
[2021-03-24 13:40] LABS: Absolute Lymphocytes (CBC) 1.2 K/uL (0.7-4.9); Basophils % 0.7 % (0-1.3); Hematocrit 44.5 % (39.6-49.0); Lymphocytes % 18.4 % (15.3-44.8); MPV 8.2 fL (7.6-11.3); RBC Red Blood Cell Count 5.23 M/uL (4.33-5.43)
[2021-03-24 13:57] LABS: Albumin 4.5 g/dL (3.4-5.0); Bilirubin Direct 0.1 mg/dL (0-0.2); Bilirubin Total 0.6 mg/dL (0.2-1.0); Magnesium 2.4 mg/dL (1.8-2.4); Potassium 3.5 mmol/L (3.5-5.1); Protein, Total 8.2 g/dL (6.4-8.2)
[2021-03-24] MEDS ORDERED: DICYCLOMINE HCL 10 MG CAP ONE ×2 (13:58→14:02)
[2021-03-24] MEDS ORDERED: NA CHLORIDE 0.9% 1,000 ML ONE ×2 (13:58→14:02)
--- NOTE | 2021-03-24 14:16 | RAD REPORT ---
EXAM DESCRIPTION: CTAbdomen Pelvis W Contrast - 03/24/2021 1:55 pm CLINICAL HISTORY: Abdominal pain. ABD PAIN COMPARISON: Abdomen Pelvis W Contrast dated 05/27/2020; CT ABD PELVIS W CONTRAST dated 03/03/2015 TECHNIQUE: Biphasic CT imaging of the abdomen and pelvis was performed with 100 ml non-ionic IV cont rast. All CT scans are performed using dose optimization technique as appropriate and may include automated exposure control or mA/KV adjustment according to patient size. FINDINGS: The lung bases are clear. The liver, spleen, pancreas, adrenal glands and kidneys are within normal limits. No bowel obstruction, free air, free fluid or abscess. There is subtle pericolonic fat stranding in t he left lower quadrant surrounding the distal descending colon and proximal sigmoid colon which may r epresent a mild colitis. The appendix is normal. No evidence of significant lymphadenopathy. No suspicious bony findings. IMPRESSION: Mild left-sided colitis pattern is suspected.
--- NOTE | 2021-03-24 14:51 | ER ---
Nurse's Notes [facility] Name: Akbar Hidalgo Age: 30 yrs Sex: Male : 1990 Arrival Date: 03/24/2021 Time: 12:51 Bed 4 Private MD: Diagnosis: Left sided colitis Presentation: 03/24 12:54 Chief complaint: Patient states: LLQ "muscle spasms inside" x 1 month. Blood in stool sv started today. Coronavirus screen: Client denies travel out of the [place] in the last 14 days. At this time, the client does not indicate any symptoms associated with coronavirus-19. Ebola Screen: No symptoms or risks identified at this time. Risk Assessment: Do you want to hurt yourself or someone else? Patient reports no desire to harm self or others. Onset of symptoms is unknown. 12:54 Method Of Arrival: Ambulatory sv 12:54 Acuity: NARENDRA 3 sv 12:55 Initial Sepsis Screen: Does the patient meet any 2 criteria? No. Patient's initial sv sepsis screen is negative. Does the patient have a suspected source of infection? No. Patient's initial sepsis screen is negative. Triage Assessment: 12:53 General: Appears in no apparent distress. comfortable, Behavior is calm, cooperative, sv appropriate for age. Neuro: Level of Consciousness is awake, alert, obeys commands, Oriented to person, place, time, situation, Gait is steady. Respiratory: Respiratory effort is even, unlabored. 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 - Social history:: Smoking status: Patient reports use of chewing tobacco. Screenin:07 Abuse screen: Denies threats or abuse. Nutritional screening: No deficits noted. em Tuberculosis screening: No symptoms or risk factors identified. Fall Risk None identified. Assessment: 13:39 General: Appears comfortable, Behavior is cooperative, appropriate for age, anxious. tr6 Pain: Complains of pain in lower abomen. Neuro: No deficits noted. Cardiovascular: No deficits noted. Respiratory: No deficits noted. GI: Bowel sounds Abdomen is tender to palpation in LLQ. GI: Reports lower abdominal pain, cramping, diarrhea, bloody stool. : No deficits noted. EENT: No deficits noted. Derm: No deficits noted. Musculoskeletal: No deficits noted. 14:45 Reassessment: took PO meds. tolerated well. em Vital Signs: 12:55 BP 132 / 81; Pulse 77; Resp 16; Temp 98.3; Pulse Ox 99% ; Weight 74.84 kg; Height 5 ft. sv 10 in. (177.80 cm); Pain 5/10; 13:04 BP 150 / 111; Pulse 88; Resp 18; Pulse Ox 100% on R/A; tr6 15:04 BP 140 / 88; Pulse 84; Resp 18; Pulse Ox 98% on R/A; tr6 12:55 Body Mass Index 23.67 (74.84 kg, 177.80 cm) sv ED Course: 12:51 Patient arrived in ED. ds1 12:53 Arm band placed on. sv 12:55 Triage completed. sv 13:02 Luz Steele, CAROLYN is Primary Nurse. tr6 13:07 Patient has correct armband on for positive identification. Bed in low position. Call em light in reach. Adult w/ patient. Pulse ox on. NIBP on. 13:12 Jorge Alberto Major PA is PHCP. cp 13:12 Bronson Dean MD is Attending Physician. cp 13:41 No provider procedures requiring assistance completed. Inserted saline lock: 18 gauge tr6 in left antecubital area, using aseptic technique. Blood collected. 13:55 CT Abd/Pelvis - IV Contrast Only In Process Unspecified. EDMS 14:51 Jerry Landa MD is Referral Physician. cp 14:58 IV discontinued, intact, bleeding controlled, No redness/swelling at site. Pressure tr6 dressing applied. Administered Medications: 13:42 Drug: NS 0.9% 1000 ml Route: IV; Rate: 1 bolus; Site: left antecubital; tr6 14:45 Follow up: IV Status: Completed infusion; IV Intake: 1000ml em 15:18 Follow up: Response: No adverse reaction; IV Status: Completed infusion; IV Intake: tr6 1000ml 13:45 Drug: Bentyl (dicyclomine) 20 mg Route: PO; tr6 14:45 Follow up: Response: No adverse reaction em 14:45 Drug: metroNIDAZOLE 500 mg Route: PO; em 15:18 Follow up: Response: No adverse reaction tr6 14:45 Drug: Cipro (ciprofloxacin) 500 mg Route: PO; em 15:18 Follow up: Response: No adverse reaction tr6 Intake: 14:45 IV: 1000ml; Total: 1000ml. em 15:18 IV: 1000ml; Total: 2000ml. tr6 Outcome: 14:51 Discharge ordered by MD. cp 14:57 Discharged to home ambulatory. tr6 14:57 Condition: good 14:57 Discharge instructions given to patient, Instructed on discharge instructions, follow up and referral plans. safety practices, Demonstrated understanding of instructions, follow-up care, medications. 15:18 Patient left the ED. tr6 Signatures: Dispatcher [employer] Alisha Romeo, RN RN Benoit Funez RN RN Shaylee Coates ds1 Jorge Alberto Major PA PA Luz Mcclendon RN RN tr6
[2021-03-24] MEDS ORDERED: metroNIDAZOLE 500 MG TABLET ONE (14:52)
--- NOTE | 2021-03-24 14:52 | EDPHYS ---
Physician Documentation [facility] Name: Akbar Hidalgo Age: 30 yrs Sex: Male : 1990 Arrival Date: 03/24/2021 Time: 12:51 Bed 4 Private MD: ED Physician Bronson Dean HPI: 03/24 13:30 This 30 yrs old Male presents to ER via Ambulatory with complaints of cp Abdominal Pain, Bloody Stools. 13:30 The patient presents with abdominal pain in the upper abdomen, abdominal distention cp that is diffuse. Onset: The symptoms/episode began/occurred 1 month(s) ago, and became worse this morning. Associated signs and symptoms: Pertinent positives: blood in stools. The symptoms are described as waxing/waning. 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 - Social history:: Smoking status: Patient reports use of chewing tobacco. ROS: 13:35 Constitutional: Negative for body aches, chills, fever, poor PO intake. cp 13:35 Eyes: Negative for injury, pain, redness, and discharge. cp 13:35 Cardiovascular: Negative for chest pain. 13:35 Respiratory: Negative for cough, shortness of breath, wheezing. 13:35 Abdomen/GI: Positive for abdominal pain, nausea, diarrhea, abdominal cramps, rectal bleeding, Negative for vomiting. 13:35 Back: Positive for pain at rest, of the low back area. 13:35 All other systems are negative. cp Exam: 13:40 Constitutional: The patient appears in no acute distress, alert, awake, non-toxic, well cp developed, well nourished. 13:40 Head/Face: Normocephalic, atraumatic. cp 13:40 Eyes: Periorbital structures: appear normal, Conjunctiva: normal, no exudate, no injection, Sclera: no appreciated abnormality, Lids and lashes: appear normal, bilaterally. 13:40 ENT: External ear(s): are unremarkable, Nose: is normal, Posterior pharynx: Airway: no evidence of obstruction, patent. 13:40 Chest/axilla: Inspection: normal. 13:40 Cardiovascular: Rate: normal, Rhythm: regular. 13:40 Respiratory: the patient does not display signs of respiratory distress, Respirations: normal, no use of accessory muscles, no retractions, labored breathing, is not present, Breath sounds: are clear throughout, no decreased breath sounds, no stridor, no wheezing. 13:40 Abdomen/GI: Inspection: abdomen appears normal, Bowel sounds: active, all quadrants, Palpation: soft, in all quadrants, mild abdominal tenderness, in all quadrants, voluntary guarding, is elicited in all quadrants. 13:40 Back: pain, that is mild, of the low back area, ROM is normal. Vital Signs: 12:55 BP 132 / 81; Pulse 77; Resp 16; Temp 98.3; Pulse Ox 99% ; Weight 74.84 kg; Height 5 ft. sv 10 in. (177.80 cm); Pain 5/10; 13:04 BP 150 / 111; Pulse 88; Resp 18; Pulse Ox 100% on R/A; tr6 15:04 BP 140 / 88; Pulse 84; Resp 18; Pulse Ox 98% on R/A; tr6 12:55 Body Mass Index 23.67 (74.84 kg, 177.80 cm) sv MDM: 13:23 Patient medically screened. cp 13:30 Differential diagnosis: appendicitis, diverticulitis, non-specific abd pain, colitis. cp 14:30 Data reviewed: vital signs, nurses notes, lab test result(s), radiologic studies, CT cp scan. 14:30 Counseling: I had a detailed discussion with the patient and/or guardian regarding: the cp historical points, exam findings, and any diagnostic results supporting the discharge/admit diagnosis, lab results, radiology results, the need for outpatient follow up, a airplane pilot commercial, to return to the emergency department if symptoms worsen or persist or if there are any questions or concerns that arise at home. 14:30 ED course: VSS. Guaiac testing negative for blood after performed by nurse. Discussed cp results of labs and radiology studies. Will discharge to home for continued monitoring. 03/24 13:17 Order name: Fecal Leukocyte Stain; Complete Time: 14:22 cp 03/24 13:17 Order name: Ova And Parasites cp 03/24 13:17 Order name: Rotavirus Antigen; Complete Time: 14:22 cp 03/24 13:17 Order name: Stool Culture cp 03/24 13:17 Order name: Basic Metabolic Panel; Complete Time: 14:22 cp 03/24 14:22 Interpretation: Normal except: GLUC 115; GFR 86. cp 03/24 13:17 Order name: CBC with Diff; Complete Time: 14:22 cp 03/24 14:23 Interpretation: Reviewed. cp 03/24 13:17 Order name: Hepatic Function; Complete Time: 14:22 cp 03/24 14:22 Interpretation: Normal except: GLOB 3.7. cp 03/24 13:17 Order name: Lipase; Complete Time: 14:22 cp 03/24 13:17 Order name: Magnesium; Complete Time: 14:22 cp 03/24 13:18 Order name: CDIFF 03/24 13:29 Order name: CT Abd/Pelvis - IV Contrast Only; Complete Time: 14:22 cp 03/24 14:23 Interpretation: Report reviewed. 03/24 13:17 Order name: IV Saline Lock; Complete Time: 13:55 cp 03/24 13:17 Order name: Labs collected and sent; Complete Time: 13:54 cp 03/24 14:24 Order name: PO challenge; Complete Time: 14:45 cp Administered Medications: 13:42 Drug: NS 0.9% 1000 ml Route: IV; Rate: 1 bolus; Site: left antecubital; tr6 14:45 Follow up: IV Status: Completed infusion; IV Intake: 1000ml em 15:18 Follow up: Response: No adverse reaction; IV Status: Completed infusion; IV Intake: tr6 1000ml 13:45 Drug: Bentyl (dicyclomine) 20 mg Route: PO; tr6 14:45 Follow up: Response: No adverse reaction em 14:45 Drug: metroNIDAZOLE 500 mg Route: PO; em 15:18 Follow up: Response: No adverse reaction tr6 14:45 Drug: Cipro (ciprofloxacin) 500 mg Route: PO; em 15:18 Follow up: Response: No adverse reaction tr6 Disposition: 16:01 Co-signature as Attending Physician, Bronson Dean MD I agree with the assessment and kdr plan of care. Disposition: 03/24/21 14:51 Discharged to Home. Impression: Left sided colitis. - Condition is Stable. - Discharge Instructions: Colitis. - Prescriptions for Bentyl 20 mg Oral Tablet - take 2 tablets by ORAL route every 6 hours As needed; 30 tablet. Cipro 500 mg Oral Tablet - take 1 tablet by ORAL route every 12 hours for 10 days; 20 tablet. Metronidazole 500 mg Oral Tablet - take 1 tablet by ORAL route every 8 hours; 30 tablet. Zofran 4 mg Oral Tablet - take 1 tablet by ORAL route every 12 hours As needed; 20 tablet. - Family Work Release, Medication Reconciliation Form, Thank You Letter, Antibiotic Education, Prescription Opioid Use form. - Follow up: Jerry Landa MD; When: 2 - 3 days; Reason: Recheck today's complaints. - Problem is new. - Symptoms have improved. Signatures: Dispatcher [employer] Alisha Romeo RN RN Bronson Garcia MD MD kdr Munoz, Edgar, RN RN em Jorge Alberto Major PA PA cp Luz Steele RN RN tr6 Corrections: (The following items were deleted from the chart) 15:18 14:51 03/24/2021 14:51 Discharged to Home. Impression: Left sided colitis. Condition is tr6 Stable. Discharge Instructions: Colitis. Prescriptions for Bentyl 20 mg Oral Tablet - take 2 tablets by ORAL route every 6 hours As needed; 30 tablet, Cipro 500 mg Oral Tablet - take 1 tablet by ORAL route every 12 hours for 10 days; 20 tablet, Metronidazole 500 mg Oral Tablet - take 1 tablet by ORAL route every 8 hours; 30 tablet, Zofran 4 mg Oral Tablet - take 1 tablet by ORAL route every 12 hours As needed; 20 tablet. and Forms are Medication Reconciliation Form, Thank You Letter, Antibiotic Education, Prescription Opioid Use. Follow up: Jerry Landa; When: 2 - 3 days; Reason: Recheck today's complaints. Problem is new. Symptoms have improved. cp
[2021-03-24] MEDS ORDERED: CIPROFLOXACIN HCL 500 MG TAB ONE (14:53)
[2021-03-24 15:26] VITALS: TEMP 98.3
[2021-03-24 15:29] VITALS: BP 140/88; O2SAT 98
[2021-03-26 15:00] LABS: C.diff Antigen/Toxin Ag neg : Tox neg (NEG : NEG)
== END 2021-03-24 15:18 | disposition home or self-care (01) ==
LOC: ER 12:49
DX: K52.9 Noninfective gastroenteritis and colitis, unspecified (principal); F17.220 Nicotine dependence, chewing tobacco, uncomplicated
CPT/HCPCS: 36415; 74177; 80048; 80076; 83690; 83735; 85025; 87045; 87046; 87177; 87209; 87324; 87425; 87449; 89055; 96360; 99284; J7030; Q9967

== ENCOUNTER 2021-03-31 22:15 | Emergency (ER) | payer SELFPAY ==
--- OUTSIDE RECORDS SUMMARY | 2021-03-31 22:18 | XMS REPORT | Continuity of Care Document ---
:1990 Author Organization [facility] t Address [address] [place] [address] Care Team Providers Name Role Phone Lab, [...] Facility Department ID 2021-01-04 2021-01-04 Laboratory Lab, [facility] [id number] 11:04:20 11:24:20 Only Fam [facility] [id number] [place] [id number] Professio [phone] [address]al [address] 2019-12-10 2019-12-10 Urgent Elsy [facility]FA[facility] [id number] 21:02:52 21:17:52 Care [facility] [id number] Surgical [id number] Specialti [phone] [address] [place] Results This patient has no known results.
[2021-04-01 00:01] LABS: Basophils % 0.9 % (0-1.3); Hematocrit 45.9 % (39.6-49.0); Lymphocytes % 20.7 % (15.3-44.8); MPV 8.5 fL (7.6-11.3); RBC Red Blood Cell Count 5.39 M/uL (4.33-5.43)
[2021-04-01 00:11] LABS: Albumin 4.6 g/dL (3.4-5.0); Bilirubin Direct 0.1 mg/dL (0-0.2); Bilirubin Total 0.5 mg/dL (0.2-1.0); Potassium 3.5 mmol/L (3.5-5.1); Protein, Total 8.5 g/dL (6.4-8.2)
[2021-04-01] MEDS ORDERED: MORPHINE 4 MG/ML SYR ONE (01:03)
[2021-04-01] MEDS ORDERED: ONDANSETRON 4 MG/2 ML VIAL ONE (01:03)
[2021-04-01] MEDS ORDERED: FAMOTIDINE 20 MG/2 ML VIAL IV ONE (01:09)
[2021-04-01] MEDS ORDERED: NA CHLORIDE 0.9% 1,000 ML ONE (01:09)
--- NOTE | 2021-04-01 02:27 | ER ---
Nurse's Notes [facility] Name: Akbar Hidalgo Age: 30 yrs Sex: Male : 1990 Arrival Date: 03/31/2021 Time: 22:20 Bed 14 Private MD: Diagnosis: Generalized abdominal pain Presentation: 03/31 22:32 Chief complaint: Patient states: came in last Friday and had blood in stool and iw diarrhea, was told his colon was inflamed, pain has gotten worse moves from left side to right kidney, stool has improved, no blood in stool now , has changed his diet and is supposed to have a colonoscopy but the pain has gotten so bad. Coronavirus screen: At this time, the client does not indicate any symptoms associated with coronavirus-19. Ebola Screen: Patient negative for fever greater than or equal to 101.5 degrees Fahrenheit, and additional compatible Ebola Virus Disease symptoms Patient denies exposure to infectious person. Patient denies travel to an Ebola-affected area in the 21 days before illness onset. No symptoms or risks identified at this time. Initial Sepsis Screen: Does the patient meet any 2 criteria? No. Patient's initial sepsis screen is negative. Does the patient have a suspected source of infection? No. Patient's initial sepsis screen is negative. Risk Assessment: Do you want to hurt yourself or someone else? Patient reports no desire to harm self or others. Onset of symptoms was March 24, 2021. 22:32 Method Of Arrival: Ambulatory iw 22:32 Acuity: NARENDRA 3 iw Triage Assessment: 23:23 General: Appears. General: Behavior is cooperative. Pain: Complains of pain in abdomen. zb Neuro: Level of Consciousness is awake, alert, Oriented to person, place, time. Cardiovascular: Patient's skin is warm and dry. Respiratory: Airway is patent Respiratory effort is even, unlabored, Respiratory pattern is regular, symmetrical. GI: Reports bloody stool. Derm: Skin is intact, is healthy with good turgor, Skin is dry, Skin is normal, Skin temperature is warm. Musculoskeletal: Range of motion: intact in all extremities. Historical: - Allergies: 22:36 Biaxin; iw 22:36 Clarithromycin; iw - Home Meds: 22:36 metronidazole 500 mg Oral tab 1 tab every 8 hours [Active]; Cipro 500 mg Oral tab 1 tab iw every 12 hours [Active]; dicyclomine 20 mg Oral tab 1 tab 4 times per day [Active]; - PMHx: 22:36 bulging disc neck; iw - Immunization history:: Adult Immunizations not up to date, Client reports receiving the 2nd dose of the Covid vaccine. - Social history:: Smoking status: Patient denies any tobacco usage or history of. Screenin:22 Abuse screen: Denies threats or abuse. Denies injuries from another. Nutritional zb screening: No deficits noted. Tuberculosis screening: No symptoms or risk factors identified. Fall Risk None identified. Assessment: 23:50 Reassessment: see triage assessement. zb 04/01 02:19 General: Appears in no apparent distress. Behavior is calm, cooperative, appropriate fu for age. Pain: Complains of pain in abdomen Pain does not radiate. Pain currently is 4 out of 10 on a pain scale. Neuro: Level of Consciousness is awake, alert, obeys commands, Oriented to person, place, time, situation, Moves all extremities. Speech is normal, Facial symmetry appears normal. Cardiovascular: Denies chest pain, palpitations, syncope. Respiratory: Respiratory effort is even, unlabored, Respiratory pattern is regular. GI: Last BM was March 31, 2021. GI: Reports Pain is 4 out of 10 on a pain scale. abdominal pain. : No signs and/or symptoms were reported regarding the genitourinary system. Derm: No signs and/or symptoms reported regarding the dermatologic system. Musculoskeletal: No signs and/or symptoms reported regarding the musculoskeletal system. Vital Signs: 03/31 22:32 BP 139 / 97; Pulse 84; Resp 16; Temp 98.6; Pulse Ox 100% on R/A; Weight 74.84 kg; iw Height 5 ft. 10 in. (177.80 cm); Pain 10/10; 23:51 BP 142 / 85; Pulse 70; Resp 16; Pulse Ox 97% on R/A; zb 04/01 02:22 BP 126 / 68; Pulse 62; Resp 19; Pulse Ox 98% on R/A; Pain 4/10; fu 03/31 22:32 Body Mass Index 23.67 (74.84 kg, 177.80 cm) iw ED Course: 03/31 22:20 Patient arrived in ED. am4 22:34 Triage completed. iw 22:36 Arm band placed on. iw 23:22 Crystal Hogue RN is Primary Nurse. zb 23:23 Patient has correct armband on for positive identification. Pulse ox on. NIBP on. Door zb closed. Noise minimized. 23:27 Missed attempt(s): 20 gauge in left antecubital area. tt3 23:33 Warren Billings MD is Attending Physician. mh7 23:45 Inserted saline lock: 20 gauge in right antecubital area, using aseptic technique. dh4 Blood collected. 04/01 01:20 CT Abd/Pelvis - IV Contrast Only In Process Unspecified. EDMS 01:41 Primary Nurse role handed off by Crystal Hogue RN tt3 01:57 Raji Catherine, CAROLYN is Primary Nurse. fu 02:30 No provider procedures requiring assistance completed. fu 02:32 IV discontinued, bleeding controlled, Pressure dressing applied. fu Administered Medications: 00:53 Drug: NS 0.9% 1000 ml Route: IV; Rate: 1000 ml; Site: right antecubital; rr5 02:18 Follow up: Response: No adverse reaction; IV Intake: 1000ml fu 00:53 Drug: Pepcid (famotidine) 20 mg Route: IVP; Site: right antecubital; rr5 02:18 Follow up: Response: Pain is decreased fu 02:35 Not Given (Patient Refused): morphine 4 mg IVP once; RASS on ADMIN: Combtv4, Very fu Agttd3, Agttd2, Rstlss1, AlertClm0, Drwsy-1, Lt Sdtn-2, Mod Sdtn-3, Dp Sdtn-4, UnArsble-5 02:35 Not Given (Patient Refused): Zofran (Ondansetron) 4 mg IVP once; over 2 minutes fu Intake: 02:18 IV: 1000ml; Total: 1000ml. fu Outcome: 02:26 Discharge ordered by . 7 02:33 Discharged to home ambulatory. fu 02:33 Condition: good 02:33 Discharge instructions given to patient, Instructed on discharge instructions, follow up and referral plans. Demonstrated understanding of instructions, follow-up care, Prescriptions given X 1. 02:37 Patient left the ED. fu Signatures: Dispatcher [employer] Varsha Gray RN Raji Montez, RN Devin Salter RN RN rr5 Harry Tsai 4 Warren Billings MD MD 7 Isaak Mcguire 3 Crystal Hogue RN RN zb Martinez, Ashley 4 Corrections: (The following items were deleted from the chart) 03/31 23:50 23:49 General: Appears in no apparent distress. Behavior is anxious, [facility] 2350 23:49 Pain: Complains of pain in abdomen [facility] 04/01 02:35 02:34 No provider procedures requiring assistance completed. jean paul reaves
--- NOTE | 2021-04-01 02:27 | EDPHYS ---
Physician Documentation [facility] Name: Akbar Hidalgo Age: 30 yrs Sex: Male : 1990 Arrival Date: 03/31/2021 Time: 22:20 Bed 14 Private MD: ED Physician Warren Billings HPI: 04/01 02:00 This 30 yrs old Male presents to ER via Ambulatory with complaints of mh7 Abdominal Pain. 02:00 The patient presents with abdominal pain in the right upper quadrant, right lower mh7 quadrant. Onset: The symptoms/episode began/occurred 5 day(s) ago. The symptoms radiate to the right flank. 02:02 Associated signs and symptoms: Pertinent positives: nausea, Pertinent negatives: mh7 anorexia, blood in stools, chest pain, constipation, diarrhea, dysuria, fever, headache, hematuria, palpitations, shortness of breath, testicular pain, vomiting, vomiting blood. The symptoms are described as intermittent, vague, waxing/waning. Modifying factors: The symptoms are alleviated by nothing, the symptoms are aggravated by nothing. Severity of pain: At its worst the pain was moderate 2 day(s) ago, in the emergency department the pain is unchanged. The patient has been recently seen at the [facility] Emergency Department, last week. Historical: - Allergies: 03/31 22:36 Biaxin; iw 22:36 Clarithromycin; iw - Home Meds: 22:36 metronidazole 500 mg Oral tab 1 tab every 8 hours [Active]; Cipro 500 mg Oral tab 1 tab iw every 12 hours [Active]; dicyclomine 20 mg Oral tab 1 tab 4 times per day [Active]; - PMHx: 22:36 bulging disc neck; iw - Immunization history:: Adult Immunizations not up to date, Client reports receiving the 2nd dose of the Covid vaccine. - Social history:: Smoking status: Patient denies any tobacco usage or history of. ROS: 04/01 02:02 Constitutional: Negative for fever, chills, and weight loss, Eyes: Negative for injury, mh7 pain, redness, and discharge, ENT: Negative for injury, pain, and discharge, Neck: Negative for injury, pain, and swelling, Cardiovascular: Negative for chest pain, palpitations, and edema, Respiratory: Negative for shortness of breath, cough, wheezing, and pleuritic chest pain, : Negative for injury, bleeding, discharge, and swelling, MS/Extremity: Negative for injury and deformity, Skin: Negative for injury, rash, and discoloration, Neuro: Negative for headache, weakness, numbness, tingling, and seizure, Psych: Negative for depression, anxiety, suicide ideation, homicidal ideation, and hallucinations, Allergy/Immunology: Negative for hives, rash, and allergies, Endocrine: Negative for neck swelling, polydipsia, polyuria, polyphagia, and marked weight changes, Hematologic/Lymphatic: Negative for swollen nodes, abnormal bleeding, and unusual bruising. Exam: 02:02 Constitutional: This is a well developed, well nourished patient who is awake, alert, mh7 and in no acute distress. Head/Face: Normocephalic, atraumatic. Eyes: Pupils equal round and reactive to light, extra-ocular motions intact. Lids and lashes normal. Conjunctiva and sclera are non-icteric and not injected. Cornea within normal limits. Periorbital areas with no swelling, redness, or edema. Neck: Trachea midline, no thyromegaly or masses palpated, and no cervical lymphadenopathy. Supple, full range of motion without nuchal rigidity, or vertebral point tenderness. No Meningismus. Chest/axilla: Normal chest wall appearance and motion. Nontender with no deformity. No lesions are appreciated. Cardiovascular: Regular rate and rhythm with a normal S1 and S2. No gallops, murmurs, or rubs. Normal PMI, no JVD. No pulse deficits. Respiratory: Lungs have equal breath sounds bilaterally, clear to auscultation and percussion. No rales, rhonchi or wheezes noted. No increased work of breathing, no retractions or nasal flaring. 02:02 Skin: Warm, dry with normal turgor. Normal color with no rashes, no lesions, and no evidence of cellulitis. MS/ Extremity: Pulses equal, no cyanosis. Neurovascular intact. Full, normal range of motion. Neuro: Awake and alert, GCS 15, oriented to person, place, time, and situation. Cranial nerves II-XII grossly intact. Motor strength 5/5 in all extremities. Sensory grossly intact. Cerebellar exam normal. Normal gait. Psych: Awake, alert, with orientation to person, place and time. Behavior, mood, and affect are within normal limits. 02:02 Abdomen/GI: Inspection: abdomen appears normal, Bowel sounds: normal, in all quadrants, Palpation: moderate abdominal tenderness, in the right upper quadrant and right lower quadrant, mass, is not appreciated, rebound tenderness, is not appreciated, voluntary guarding, is not appreciated, involuntary guarding, is not appreciated, no appreciated organomegaly, Rectal exam: the exam is deferred, because of patient request, Indicators: McBurney's point is not tender, Ramirez's sign is negative, Rovsing's sign is negative, Obturator sign is negative, Psoas sign is negative, Liver: no appreciated palpable abnormalities, Hernia: not appreciated. 02:02 Back: normal spinal alignment noted, CVA tenderness, that is mild, is noted on the right, muscle spasm, is not present. Vital Signs: 03/31 22:32 BP 139 / 97; Pulse 84; Resp 16; Temp 98.6; Pulse Ox 100% on R/A; Weight 74.84 kg; iw Height 5 ft. 10 in. (177.80 cm); Pain 10/10; 23:51 BP 142 / 85; Pulse 70; Resp 16; Pulse Ox 97% on R/A; zb 04/01 02:22 BP 126 / 68; Pulse 62; Resp 19; Pulse Ox 98% on R/A; Pain 4/10; fu 03/31 22:32 Body Mass Index 23.67 (74.84 kg, 177.80 cm) iw MDM: 02:24 Differential diagnosis: appendicitis, bowel obstruction, Cholelithiasis, mh7 diverticulitis, gastritis, gastroesophageal reflux disease, non-specific abd pain, pancreatitis, Pyelonephritis, Ureterolithiasis, urinary tract infection. Data reviewed: vital signs, nurses notes, lab test result(s), CBC, electrolytes, urinalysis, radiologic studies, CT scan. Data interpreted: Pulse oximetry: on room air is 98 %. Interpretation: normal. Counseling: I had a detailed discussion with the patient and/or guardian regarding: the historical points, exam findings, and any diagnostic results supporting the discharge/admit diagnosis, lab results, radiology results, the need for outpatient follow up, to return to the emergency department if symptoms worsen or persist or if there are any questions or concerns that arise at home. Response to treatment: the patient's symptoms have resolved after treatment, the patient's blood pressure is in an acceptable range, mental status has returned to baseline, the patient no longer shows bradycardia, the patient is not short of breath, the patient is not tachycardic, the patient's pain is gone, the patient's temperature has normalized. 02:[address] [facility] 03/31 23:37 Order name: Basic Metabolic Panel; Complete Time: 00:25 zb 03/31 23:37 Order name: CBC with Diff; Complete Time: 00:25 z 03/31 23:37 Order name: Hepatic Function; Complete Time: 00:25 zb 03/31 23:37 Order name: Lipase; Complete Time: 00:25 zb 04/01 00:46 Order name: CT Abd/Pelvis - IV Contrast Only [facility] 03/31 23:37 Order name: IV Saline Lock; Complete Time: 23:37 zb 03/31 23:37 Order name: Labs collected and sent; Complete Time: 23:37 zb Administered Medications: 00:53 Drug: NS 0.9% 1000 ml Route: IV; Rate: 1000 ml; Site: right antecubital; rr5 02:18 Follow up: Response: No adverse reaction; IV Intake: 1000ml fu 00:53 Drug: Pepcid (famotidine) 20 mg Route: IVP; Site: right antecubital; rr5 02:18 Follow up: Response: Pain is decreased fu 02:35 Not Given (Patient Refused): morphine 4 mg IVP once; RASS on ADMIN: Combtv4, Very fu Agttd3, Agttd2, Rstlss1, AlertClm0, Drwsy-1, Lt Sdtn-2, Mod Sdtn-3, Dp Sdtn-4, UnArsble-5 02:35 Not Given (Patient Refused): Zofran (Ondansetron) 4 mg IVP once; over 2 minutes fu Disposition: 04/01/21 02:26 Discharged to Home. Impression: Generalized abdominal pain. - Condition is Stable. - Discharge Instructions: Abdominal Pain, Adult. - Prescriptions for Bentyl 20 mg Oral Tablet - take 1 tablet by ORAL route every 6 hours As needed; 20 tablet. - Medication Reconciliation Form, Thank You Letter, Antibiotic Education, Prescription Opioid Use form. - Follow up: Private Physician; When: 1 - 2 days; Reason: Worsening of condition, Recheck today's complaints, Continuance of care, Re-evaluation by your physician. - Problem is an ongoing problem. - Symptoms have improved. Signatures: Dispatcher [employer] EDVarsha Denis, RN Raji Montez RN RN fu Roque, Raymond RN RN rr5 Warren Billings MD MD 7 Crystal Hogue RN RN zb Corrections: (The following items were deleted from the chart) 02:37 02:26 04/01/2021 02:26 Discharged to Home. Impression: Generalized abdominal pain. fu Condition is Stable. Forms are Medication Reconciliation Form, Thank You Letter, Antibiotic Education, Prescription Opioid Use. Follow up: Private Physician; When: 1 - 2 days; Reason: Worsening of condition, Recheck today's complaints, Continuance of care, Re-evaluation by your physician. Problem is an ongoing problem. Symptoms have improved. mh7
[2021-04-01 02:48] VITALS: TEMP 98.6
[2021-04-01 02:52] VITALS: BP 126/68; O2SAT 98
--- NOTE | 2021-04-02 11:27 | RAD REPORT ---
EXAM DESCRIPTION: CT - Abdomen Pelvis W Contrast - 04/01/2021 3:22 am CLINICAL HISTORY: 30 years, Male, ABD PAIN COMPARISON: None. TECHNIQUE: Contrast-enhanced images of the abdomen and pelvis were performed utilizing 5 mm slice th ickness at 5 mm interval reconstruction from the lung bases to the ischial tuberosities after the adm inistration of IV contrast. In addition multiplanar reformats in the coronal and sagittal plane were obtained and reviewed. This exam was performed according to our departmental dose-optimization protocol, which includes auto mated exposure control, adjustment of the mA and/or kV according to patient size and/or use of iterat janice reconstruction technique. FINDINGS: The lung bases demonstrate to be clear. The liver, gallbladder, pancreas, spleen and adrenal glands demonstrate to be unremarkable, no focal lesions are noted. The kidneys demonstrate normal uptake of contrast media with no evidence for hydronephrosis. Grossly the unopacified stomach, small bowel and large bowel demonstrate to be within normal limits. There is no evidence for bowel dilatation/or free air. There is fecal residue throughout the large bowel with the resolution previous described mild inflammatory changes along the left distal descendi ng colon/proximal sigmoid colon at the left lower quadrant. The appendix is normal. The urinary bladder demonstrate to be unremarkable. The prostate gland is normal. The aorta demon strate to be normal. There is no retroperitoneal lymphadenopathy. There is no evidence for ascites/ or abnormal fluid collections. The rest of the soft tissue and bony structures are within normal limi ts. IMPRESSION: No acute intra-abdominal or pelvic abnormality. Resolution previous described mild left sided colitis. Electronically signed by: Adi Pablo MD 04/01/2021 1:58 AM CDT Due to temporary technical issues with the PACS/Fluency reporting system, reports are being signed by the in house radiologists without review as a courtesy to insure prompt reporting. The interpreting radiologist is fully responsible for the content of the report.
== END 2021-04-01 02:37 | disposition home or self-care (01) ==
LOC: ER 22:15
DX: R10.84 Generalized abdominal pain (principal); Z88.3 Allergy status to other anti-infective agents; Z88.6 Allergy status to analgesic agent
CPT/HCPCS: 36415; 74177; 80048; 80076; 83690; 85025; 96374; 99284; J2405; J7030; Q9967

== ENCOUNTER → 2024-01-17 | Emergency (ER) | payer SELFPAY ==
--- OUTSIDE RECORDS SUMMARY | 2024-01-17 04:19 | XMS REPORT | Continuity of Care Document ---
Author Name Unknown Address [address] [place] [address] [facility] Address [address] [place] [address] Care Team Providers Care Desktop Support Engineer Name Role Phone PCP, PATIENT DOES NOT HAVE A Primary Care Physic carroll Unavailable Jaun Noble Attending Clinician Unavailable CAITY THOMSON Attending Clinician Unavailab Caity Rao DO Attending Clinician [phone] PIERRE JONES Attending Clinician Unavailable Pierre Gonzalez Attending Clinician [phone] JOSH GREEN Attending Clinician Unavail able TRENTON BERGER Attending Clinician Unavailable Lab, Adc Fam Pob I Attending Clinician Unavailab JARRET James Attending Clinician Unavailable Robyn Chin PA-C Attending Clinician [phone] CAITY THOMSON Admitting Clinician Unavailab PIERRE Mcknight Admitting Clinician Unavailable Payers Payer Name Policy Type Policy Number Effective Date Expirati on Date Source [facility] [id number] 2021 00:00:00 Problems Condition Name Condition Details Condition Category Status Onset Date Resolution Date Last Treatment Date Treating Clinician Comments Source No known active problems No known active problems Disease [facility] [id number] Chronic prostatiti s Problem [facility] [id number] Gross hematuria Problem [facility] [id number] Lower urinary tract symptoms (LUTS) Problem [facility] [id number] Bilateral flank pain Problem [facility] [id number] Voiding dysfunctio n Problem [facility] [id number] Pelvic pain in male Problem [facility] Allergies, Adverse Reactions, Alerts Allergy Name Allergy Type Status Severity Reaction(s) Onset Date Inactive Date Treating Clinician Comments Source CLARITHR OMYCIN DRUG INGREDI Active Unknown-Cmnt 03-24 00:00: 00 [facility] Clarithr omycin Propensi ty to adverse reaction s Active Unknown - See comments 03-24 00:00: 00 [facility] NO KNOWN ALLERGIE S Drug Class Active [facility] clarithr omycin clarithr omycin Active Unknown [facility] Social History Social Habit Start Date Stop Date Quantity Comments Source Sex Assigned At [facility] History of Tobacco Use [facility] Alcohol intake 2022-06-03 00:00:00 2022-06-03 00:00:00 Current non-drinker of alcohol (finding) [facility] Exposure to SARS-CoV-2 (event) 2022-03-14 00:00:00 2022-03-24 11:41:00 Not sure [facility] Tobacco use and exposure 2019-01-20 00:00:00 2019-01-20 00:00:00 Smokeless tobacco non-user [facility] Smoking Status Start Date Stop Date Source Former Smoker 2022-11-21 00:00:00 2022-11-21 00:00:00 [facility] Occasional tobacco smoker 2019-01-20 00:00:00 [facility] Medications Ordered Medication Name Filled Medication Name Start Date Stop Date Current Medication? Ordering Clinician Indication Dosage Frequency Signature (SIG) Comments Components Source Alfuzosin HCl ER 10 MG Alfuzosin HCl ER 10 MG 2022-0 9-07 00:00: 00 01-05 00:00 :00 No 1{table t_immed iately_ after_t he_same _meal} QD Alfuzosin HCl ER 10 MG Alfuzosin HCl ER 10 MG Alfuzosin HCl ER 10 MG 2022-0 9- 00:00: 00 01-05 00:00 :00 No 1{table t_immed iately_ after_t he_same _meal} QD Alfuzosin HCl ER 10 MG Alfuzosin HCl ER 10 MG Alfuzosin HCl ER 10 MG 2-0 9- 00:00: 00 01-05 00:00 :00 No 1{table t_immed iately_ after_t he_same _meal} QD Alfuzosin HCl ER 10 MG Alfuzosin HCl ER 10 MG Alfuzosin HCl ER 10 MG 2-0 - 00:00: 00 01-05 00:00 :00 No 1{table t_immed iately_ after_t he_same _meal} QD Alfuzosin HCl ER 10 MG Alfuzosin HCl ER 10 MG Alfuzosin HCl ER 10 MG 2-0 07-10 00:00: 00 01-05 00:00 :00 No 1{table t_immed iately_ after_t he_same _meal} QD Alfuzosin HCl ER 10 MG Alfuzosin HCl ER 10 MG Alfuzosin HCl ER 10 MG 2-0 07-10 00:00: 00 01-05 00:00 :00 No 1{table t_immed iately_ after_t he_same _meal} QD Alfuzosin HCl ER 10 MG Alfuzosin HCl ER 10 MG Alfuzosin HCl ER 10 MG 2-0 - 00:00: 00 01-05 00:00 :00 No 1{table t_immed iately_ after_t he_same _meal} QD Alfuzosin HCl ER 10 MG Alfuzosin HCl ER 10 MG Alfuzosin HCl ER 10 MG 2-0 9-07 00:00: 00 01-05 00:00 :00 No 1{table t_immed iately_ after_t he_same _meal} QD Alfuzosin HCl ER 10 MG iopamidol (ISOVUE 370-500 mL) injection 100 mL 03-24 19:45: 00 03-24 19:45 :00 No [id number] 100mL 100 mL, Intravenou s, ONCE, 1 dose, On 03/24/22 at 1445, Routine [facility] dicyclomine 20 mg tablet 03-24 00:00: 00 Yes [id number] 20mg Take 1 tablet by mouth 4 (four) times daily as needed for Abdominal pain. [facility] dicyclomine 20 mg tablet 03-24 00:00: 00 Yes [id number] 20mg Take 1 tablet by mouth 4 (four) times daily as needed for Abdominal pain. [facility] Vital Signs Vital Name Observation Time Observation Value Comments S ource height 2022-08-08 10:30:00 69 [in_i] Commo n [facility] weight 2022-08-08 10:30:00 157 [lb_av] Comm on [facility] temperature 2022-08-08 10:30:00 98.4 [degF] Com mon [facility] bmi 2022-08-08 10:30:00 23.18 kg/m2 Comm on [facility] oximetry 2022-08-08 10:30:00 96 % Commo n [facility] blood pressure systolic 2022-08-08 10:30:00 125 mm[Hg] [facility] blood pressure diastolic 2022-08-08 10:30:00 77 mm[Hg] [facility] height 2022-07-10 16:30:00 69 [in_i] Commo n [facility] weight 2022-07-10 16:30:00 157.4 [lb_av] Co mmon [facility] temperature 2022-07-10 16:30:00 98.4 [degF] Com mon [facility] bmi 2022-07-10 16:30:00 23.24 kg/m2 Comm on [facility] oximetry 2022-07-10 16:30:00 99 % Commo n [facility] respiratory rate 2022-07-10 16:30:00 18 /min [facility] blood pressure systolic 2022-07-10 16:30:00 130 mm[Hg] [facility] blood pressure diastolic 2022-07-10 16:30:00 65 mm[Hg] [facility] Heart rate 2022-06-03 19:00:00 58 /min [facility] Oxygen saturation in Arterial blood by Pulse oximetry 2022-06-03 19:00:00 96 /min [facility] Systolic blood pressure 2022-06-03 19:00:00 116 mm[Hg] [facility] Diastolic blood pressure 2022-06-03 19:00:00 71 mm[Hg] [facility] Body temperature 2022-06-03 17:23:00 36 Stephanie [facility] Respiratory rate 2022-06-03 17:23:00 18 /min [facility] Body height 2022-06-03 17:23:00 177.8 cm [facility] Body weight 2022-06-03 17:23:00 72.576 kg [facility] BMI 2022-06-03 17:23:00 22.96 kg/m2 [facility] Systolic blood pressure 2022-03-24 19:07:03 114 mm[Hg] [facility] Diastolic blood pressure 2022-03-24 19:07:03 72 mm[Hg] [facility] Heart rate 2022-03-24 19:07:03 84 /min [facility] Respiratory rate 2022-03-24 19:07:03 18 /min [facility] Oxygen saturation in Arterial blood by Pulse oximetry 2022-03-24 19:07:03 97 /min [facility] Body temperature 2022-03-24 16:42:00 36.72 Stephanie [facility] Body weight 2022-03-24 16:42:00 72.576 kg [facility] BMI 2022-03-24 16:42:00 23.63 kg/m2 [facility] Procedures Procedure Date / Time Performed Performing Clinician Source COMP. METABOLIC PANEL (50111) 2022-06-03 18:15:00 Caity Thomson [facility] CBC WITH DIFF 2022-06-03 18:15:00 [facility]03 18:15:00 [facility] 2022-06-03 18:09:16 Caity Thomson [facility] CONSENT/REFUSAL FOR DIAGNOSIS AND TREATMENT 2022-06-03 17:10:16 Doctor Unassigned, [place] [facility] CT ABDOMEN PELVIS W CONTRAST 2022-03-24 18:34:32 Pierre Jones [facility] LIPASE 2022-03-24 17:06:00 Pierre Jones [facility] COMP. METABOLIC PANEL (40518) 2022-03-24 17:06:00 Pierre Jones [facility] CBC WITH DIFF 2022-03-24 17:06:00 Pierre Jones [facility] PROTHROMBIN TIME / INR 2022-03-24 17:06:00 Tory Jones [facility] URINALYSIS 2022-03-24 17:06:00 Pierre Jones [facility] Encounters Start Date/Time End Date/Time Encounter Type Admission Type Attending Clinicians Care Facility Care Department Encounter ID Source 2022-07-10 16:09:04 Outpatient Jaun Noble [facility] [id number] [facility] 2022-12-09 00:00:00 2022-12-09 00:00:00 (TEL) [facility] [id number] [facility] 2022-11-21 00:00:00 2022-11-21 00:00:00 ([place]) Nurse Visit [facility] [id number] [facility] 2022-09-10 00:00:00 2022-09-10 00:00:00 (TEL) [facility] [id number] [facility] 2022-08-08 00:00:00 2022-08-08 00:00:00 OFFICE VISIT EST PT LEVEL 3 [facility] ST[facility] [id number] [facility] 2022-07-26 00:00:00 2022-07-26 00:00:00 (TEL) [facility]C ST[facility] [id number] [facility] 2022-07-22 00:00:00 2022-07-22 00:00:00 (TEL) STLMLC STL[facility]C [id number] [facility] 2022-07-10 00:00:00 2022-07-10 00:00:00 OFFICE VISIT EST PT LEVEL 3 [facility] ST[facility] [id number] [facility] 2022-06-03 12:25:00 2022-06-03 14:11:00 Emergency X CAITY THOMSON [facility] ERT [id number] [facility] 2022-06-03 12:25:00 2022-06-03 14:11:00 Emergency Caity Thomson [facility] [id number] [facility] 2022-03-24 11:44:00 2022-03-24 14:51:00 Emergency X PIERRE JONES [facility] ERT [id number] [facility] 2022-03-24 11:44:00 2022-03-24 14:51:00 Emergency Pierre Jones [facility] [id number] [facility] 2021-03-12 10:20:00 2021-03-12 10:36:10 Outpatient JOSH LALA [facility] [id number] [facility] 2021-03-10 10:20:00 2021-03-10 10:20:00 Outpatient [facility] [id number] [facility] 2021-02-17 10:30:00 2021-02-17 10:15:38 Outpatient TRENTON GRANADO [facility] [id number] [facility] 2021-01-04 11:04:20 2021-01-04 11:24:20 Laboratory Only Lab, Adc Fam Pob I [facility] [id number] 2021-01-04 11:00:00 2021-01-04 11:00:00 Outpatient JARRET GRAY [facility] [id number] [facility] 2019-12-10 21:02:52 2019-12-10 21:17:52 Urgent Care Robyn Chin [facility] [id number] Results Test Description Test Time Test Comments Results Result Co mments [facility]:37[facility]27* Test Item Value Reference Range Interpretation Comme [facility] LIPASE (test code = 3893362346) 49 U/L 0-220 Lab Interpretation (test cod e = 55794-8) Normal [facility] [id number] 17:35:06* Test Item Value Reference Range Interpretation Comme nts PROTIME PATIENT (test code = 5964-2) See_Comment [Automated [employer]] The system which generated this result transmitted reference range: 10.1 - 12.6 Seconds. The reference range was not used to interpret this result as normal/abnormal. INR (test code = 6301-6) Normal INR <1.1; Warfarin Therapeutic range 2.0 to 3.0 or 2.5 to 3.5, depending upon the indications. Lab Interpretation (test code = 65502-4) Normal [facility] WITH [id number] 17:23:48* Test Item Value Reference Range Interpretation Comme nts WBC (test code = 6690-2) See_Comment [Automated messa ge] The system which generated this result transmitted reference range: 4.20 - 10.70 10*3/?L. The reference range was not used to interpret this result as normal/abnormal. RBC (test code = 789-8) See_Comment [Automated messa ge] The system which generated this result transmitted reference range: 4.26 - 5.52 10*6/?L. The reference range was not used to interpret this result as normal/abnormal. HGB (test code = 718-7) 16.2 g/dL 12.2-16.4 HCT (test code = 4544-3) 45.5 % 38.4-49.3 MCV (test code = 787-2) 83.2 fL 81.7-95.6 MCH (test code = 785-6) 29.6 pg 26.1-32.7 MCHC (test code = 786-4) 35.6 g/dL 31.2-35.0 H RDW-SD (test code = 58677-7) 35.5 fL 38.5-51.6 L RDW-CV (test code = 788-0) 11.9 % 12.1-15.4 L PLT (test code = 777-3) See_Comment [Automated messa ge] The system which generated this result transmitted reference range: 150 - 328 10*3/?L. The reference range was not used to interpret this result as normal/abnormal. MPV (test code = 81721-0) 9.8 fL 9.8-13.0 NRBC/100 WBC (test code = 5959702691) See_Comment [Automated Sviral ssage] The system which generated this result transmitted reference range: 0.0 - 10.0 /100 WBCs. The reference range was not used to interpret this result as normal/abnormal. NRBC x10^3 (test code = 6913503109) <0.01 See_Comment [Automated messa ge] The system which generated this result transmitted reference range: 10*3/?L. The reference range was not used to interpret this result as normal/abnormal. GRAN MAT (NEUT) % (test code = 770-8) 73.2 % IMM GRAN % (test code = 2053485381) 0.30 % LYMPH % (test code = 736-9) 19.3 % MONO % (test code = 5905-5) 5.5 % EOS % (test code = 713-8) 1.2 % BASO % (test code = 706-2) 0.5 % GRAN MAT x10^3(ANC) (test code = 6528881225) 4.69 10*3/uL 1.99-6.95 IMM GRAN x10^3 (test code = 0767498721) <0.03 0.00-0.06 LYMPH x10^3 (test code = 731-0) 1.24 10*3/uL 1.09-3.23 MONO x10^3 (test code = 742-7) 0.35 10*3/uL 0.36-1.02 L EOS x10^3 (test code = 711-2) 0.08 10*3/uL 0.06-0.53 BASO x10^3 (test code = 704-7) 0.03 10*3/uL 0.01-0.09 Lab Interpretation (test code = 23244-9) Abnormal [facility]
[2024-01-17 05:04] LABS: Absolute Eosinophils 0.2 K/uL (0-0.5); Absolute Lymphocytes (CBC) 1.4 K/uL (0.7-4.9); Absolute Monocytes 0.4 K/uL (0.1-1.3); Absolute Neutrophil 3.5 K/uL (1.8-8.0); Basophils % 0.5 % (0-1.3); Eosinophils % 3.6 % (0-4.4); Hemoglobin 14.8 g/dL (13.6-17.9); Lymphocytes % 25.2 % (15.3-44.8); MCH 30.1 pg (27.0-35.0); MCHC 35.2 g/dL (32.0-36.0); MCV 85.5 fL (80-100); MPV 7.6 fL (7.6-11.3); Monocytes % 7.8 % (3.3-12.3); Neutrophils % 62.9 % (41.7-73.7); Nucleated Red Blood Cells % 0.1 % (0-0); Platelets 206 thou/uL (152-406); RBC Red Blood Cell Count 4.91 M/uL (4.33-5.43); Red Cell Distribution Width 12.9 % (12.1-15.2)
[2024-01-17 05:08] LABS: PT Prothrombin Time 12.3 SECONDS (9.5-12.5); Protime INR 1.12
[2024-01-17 05:21] LABS: Albumin/Globulin Ratio 1.1 (1.1-1.8); Anion Gap 9.3 mEq/L (5.0-15.0); Bilirubin Direct 0.2 mg/dL (0-0.2); Bilirubin Indirect, Calculated 0.4 mg/dL (0.2-0.8); Bilirubin Total 0.6 mg/dL (0.2-1.0); Globulin 3.6 g/dL (2.3-3.5); Magnesium 2.5 mg/dL (1.6-2.4); Potassium 3.3 mEq/L (3.5-5.1); Protein, Total 7.6 g/dL (6.4-8.2); Troponin High Sensitivity 16.3 pg/mL (<58.9)
--- NOTE | 2024-01-17 07:25 | RAD REPORT ---
EXAM DESCRIPTION: CT - Chest Abdomen Pelvis W Cont - 01/17/2024 6:46 am CLINICAL HISTORY: Chest and abdomen pain. Right chest wall pain COMPARISON: Chest Abdomen Pelvis W Cont dated 12/26/2019; Chest Single View dated 01/17/2024 TECHNIQUE: Approximately 100 mL nonionic IV contrast was administered to the patient. All CT scans are performed using dose optimization technique as appropriate and may include automated exposure control or mA/KV adjustment according to patient size. FINDINGS: The lungs are clear.No pleural or pericardial effusion.No intrathoracic adenopathy.Normal thyroid gland. The liver, spleen, pancreas, adrenal glands and kidneys are within normal limits. No bowel obstruction, free air, free fluid or abscess. The appendix is not identified as a discrete s tructure, however, no secondary findings of appendicitis are identified. No pathologic lymphadenopa thy in the abdomen or pelvis. No worrisome osseous finding. IMPRESSION: No acute or pathologic process is seen.
--- NOTE | 2024-01-17 08:22 | EDPHYS ---
Physician Documentation [facility] Name: Akbar Hidalgo Age: 33 yrs Sex: Male : 1990 Arrival Date: 01/17/2024 Time: 04:15 Bed 20 Private MD: Jaun Noble ED Physician Aleksander Pierre HPI: 01/16 04:47 This 33 yrs old Male presents to ER via Ambulatory with complaints of Chest sp4 Pain. 19:16 33-year-old male presents with acute onset right lateral chest wall pain described as sp4 stabbing just prior to arrival. Denies any other symptoms including fever. . Historical: - Allergies: 04:27 Biaxin; cm10 - PMHx: 04:27 Irritable bowel syndrome; cm10 - Immunization history:: Adult Immunizations up to date. - Social history:: Smoking status: Reported history of juuling and/or vaping. - Family history:: not pertinent. ROS: 19:16 Constitutional: Negative for fever, chills, and weight loss, positive right lateral sp4 chest pain 19:16 All other systems are negative, Exam: 19:16 Constitutional: This is a well developed, well nourished patient who is awake, alert, sp4 and in no acute distress. Head/Face: Normocephalic, atraumatic. Eyes: Pupils equal round and reactive to light, extra-ocular motions intact. Lids and lashes normal. Conjunctiva and sclera are not injected. Cornea within normal limits. Periorbital areas with no swelling, redness, or edema. ENT: Nares patent. No nasal discharge, no septal abnormalities noted. Tympanic membranes are normal and external auditory canals are clear. Oropharynx with no redness, swelling, or masses, exudates, or evidence of obstruction, uvula midline. Mucous membranes moist. Neck: Trachea midline, no thyromegaly or masses palpated, and no cervical lymphadenopathy. Supple, full range of motion without nuchal rigidity, or vertebral point tenderness. Chest/axilla: Normal chest wall appearance and motion. Nontender with no deformity. No lesions are appreciated. Cardiovascular: Regular rate and rhythm with a normal S1 and S2. No gallops, murmurs, or rubs. Normal PMI, no JVD. No pulse deficits. Respiratory: Lungs have equal breath sounds bilaterally, clear to auscultation and percussion. No rales, rhonchi or wheezes noted. No increased work of breathing, no retractions or nasal flaring. Abdomen/GI: Soft, with normal bowel sounds. No distension or tympany. No guarding or rebound. No evidence of tenderness throughout. Back: No spinal tenderness. No costovertebral tenderness. Skin: Warm, dry with normal turgor. Normal color with no rashes, no lesions, and no evidence of cellulitis. MS/ Extremity: Pulses equal, no cyanosis. Neurovascular intact. Full, normal range of motion. Neuro: Awake and alert, GCS 15, oriented to person, place, time, and situation. Cranial nerves II-XII grossly intact. Motor strength 5/5 in all extremities. Sensory grossly intact. Psych: Awake, alert, with orientation to person, place and time. Behavior, mood, and affect are within normal limits 19:16 ECG was reviewed by the Attending Physician. EKG at 0 444 normal sinus rhythm with right axis , rate 69 Vital Signs: 04:26 BP 145 / 105; Pulse 79; Resp 16; Temp 97.5; Pulse Ox 98% on R/A; Weight 72.57 kg; cm10 Height 5 ft. 9 in. ; Pain 3/10; 05:30 BP 110 / 70; Pulse 63; Resp 20; Pulse Ox 97% on R/A; pf1 06:30 BP 106 / 63; Pulse 58; Resp 14; Pulse Ox 97% on R/A; pf1 08:20 BP 115 / 72; Pulse 63; Resp 18; Pulse Ox 99% on R/A; rs5 04:26 Body Mass Index 23.63 (72.57 kg, 175.26 cm) cm10 04:26 Pain Scale: Adult cm10 [place] Coma Score: 19:16 Eye Response: spontaneous(4). Motor Response: obeys commands(6). Verbal Response: sp4 oriented(5). Total: 15. MDM: 04:48 Patient medically screened. sp4 19:16 Differential diagnosis: acute pericarditis, anxiety, chest wall pain, costochondritis, sp4 esophagitis, gastritis. HEART Score: History: Slightly Suspicious (0), ECG: Normal (0), Age: < or = 45 years (0), Risk Factors: No Risk Factors Known (0), Troponin: < or = 1 x Normal Limit (0), Total Score = 0. Data reviewed: vital signs, nurses notes, old medical records, lab test result(s), EKG, radiologic studies, CT scan. ED course: EXAM DESCRIPTION: Chest Single View CLINICAL HISTORY: CHEST PAIN COMPARISON: None TECHNIQUE: Single AP view of the chest. FINDINGS: Lung volumes adequate. Cardiac silhouette is normal in size. No pneumothorax. No large pleural effusion. No focal consolidation. No acute bony finding. IMPRESSION: No evidence of acute cardiopulmonary disease. . ED course: EXAM DESCRIPTION: CT - Chest Abdomen Pelvis W Cont - 01/17/2024 6:46 am CLINICAL HISTORY: Chest and abdomen pain. Right chest wall pain COMPARISON: Chest Abdomen Pelvis W Cont dated 12/26/2019; Chest Single View dated 01/17/2024 TECHNIQUE: Approximately 100 mL nonionic IV contrast was administered to the patient. All CT scans are performed using dose optimization technique as appropriate and may include automated exposure control or mA/KV adjustment according to patient size. FINDINGS: The lungs are clear.No pleural or pericardial effusion.No intrathoracic adenopathy.Normal thyroid gland. The liver, spleen, pancreas, adrenal glands and kidneys are within normal limits. No bowel obstruction, free air, free fluid or abscess. The appendix is not identified as a discrete structure, however, no secondary findings of appendicitis are identified. No pathologic lymp hadenopathy in the abdomen or pelvis. No worrisome osseous finding. IMPRESSION: No acute or pathologic process is seen.. 19:23 ED course: Workup is unremarkable patient is stable for discharge home. 01/16 04:48 Order name: Basic Metabolic Panel; Complete Time: 05:53 01/16 04:48 Order name: CBC with Diff; Complete Time: 05:53 01/16 04:48 Order name: LFT's; Complete Time: 05:53 01/16 04:48 Order name: Magnesium; Complete Time: 05:53 01/16 04:48 Order name: NT PRO-BNP; Complete Time: 05:53 01/16 04:48 Order name: PT-INR; Complete Time: 05:53 01/16 04:48 Order name: Troponin HS; Complete Time: 05:53 01/16 04:48 Order name: XRAY Chest (1 view) sp4 01/16 05:53 Order name: CT Chest, Abdomen, Pelvis - W/Contrast; Complete Time: 08:18 sp4 01/16 04:48 Order name: EKG; Complete Time: 04:49 sp4 01/16 04:48 Order name: Cardiac monitoring; Complete Time: 04:51 sp4 01/16 04:48 Order name: EKG - Nurse/Tech; Complete Time: 04:59 sp4 01/16 04:48 Order name: IV Saline Lock; Complete Time: 04:51 sp4 01/16 04:48 Order name: Labs collected and sent; Complete Time: 04:59 sp4 01/16 04:48 Order name: O2 Per Protocol; Complete Time: 04:51 sp4 01/16 04:48 Order name: O2 Sat Monitoring; Complete Time: 04:51 sp4 EC:16 Rate is 69 beats/min. Rhythm is regular, Normal Sinus Rhythm. Right axis deviation sp4 noted. ID interval is normal. QRS interval is normal. QT interval is normal. No Q waves. T waves are Normal. No ST changes noted. Clinical impression: Normal ECG. Interpreted by me. Reviewed by me. Administered Medications: No medications were administered Disposition Summary: 01/17/24 08:22 Discharge Ordered Notes: Location: Home sp4 Problem: new sp4 Symptoms: have improved sp4 Condition: Stable sp4 Diagnosis - Chest pain, unspecified sp4 - Noncardiac chest pain sp4 Followup: sp4 - With: Jaun Noble MD - When: 7 - 10 days - Reason: Recheck today's complaints Discharge Instructions: - Discharge Summary Sheet sp4 - Nonspecific Chest Pain, Adult sp4 Forms: - Patient Portal Instructions sp4 Signatures: Dispatcher [employer] Aleksander Ocampo MD MD sp4 Aliya Hong, RN RN cm10
--- NOTE | 2024-01-17 08:22 | ER ---
Nurse's Notes [facility] Name: Akbar Hidalgo Age: 33 yrs Sex: Male : 1990 Arrival Date: 01/17/2024 Time: 04:15 Bed 20 Private MD: Jaun Noble Diagnosis: Chest pain, unspecified;Noncardiac chest pain Presentation: 01/16 04:26 Chief complaint: Patient states: Right sided rib pain onset 1 week ago. Pt describes cm10 the pain as a dull pain and states that occasionally it is a sharp pain. Coronavirus screen: Client denies travel out of the [place] in the last 14 days. At this time, the client does not indicate any symptoms associated with coronavirus-19. Ebola Screen: Patient denies travel to an Ebola-affected area in the 21 days before illness onset. No symptoms or risks identified at this time. Initial Sepsis Screen: Does the patient meet any 2 criteria? No. Patient's initial sepsis screen is negative. Does the patient have a suspected source of infection? No. Patient's initial sepsis screen is negative. Risk Assessment: Do you want to hurt yourself or someone else? Patient reports no desire to harm self or others. Onset of symptoms was January 17, 2024. 04:26 Method Of Arrival: Ambulatory cm10 04:26 Acuity: NARENDRA 3 cm10 Triage Assessment: 04:30 General: Appears in no apparent distress. comfortable, well groomed, well developed, pf1 Behavior is calm, cooperative, appropriate for age, quiet. 04:30 Pain: Complains of pain in right ribcage Pain currently is 3 out of 10 on a pain scale. pf1 Respiratory: No deficits noted. Airway is patent Respiratory effort is even, unlabored, Respiratory pattern is regular, symmetrical, Breath sounds are clear bilaterally. Historical: - Allergies: 04:27 Biaxin; cm10 - PMHx: 04:27 Irritable bowel syndrome; cm10 - Immunization history:: Adult Immunizations up to date. - Social history:: Smoking status: Reported history of juuling and/or vaping. - Family history:: not pertinent. Screenin:52 [facility] ED Fall Risk Assessment (Adult) History of falling in the last 3 months, pf1 including since admission No falls in past 3 months (0 pts) Confusion or Disorientation No (0 pts) Intoxicated or Sedated No (0 pts) Impaired Gait No (0 pts) Mobility Assist Device Used No (0 pt) Altered Elimination No (0 pt) Score/Fall Risk Level 0 - 2 = Low Risk Oriented to surroundings, Maintained a safe environment, Educated pt \T\ family on fall prevention, incl call for assistance when getting out of bed, Assessed \T\ reinforced patient's understanding of fall precautions, Provided non-skid footwear, Hourly rounding (assess needs \T\ fall precautionary measures) done, Used ambulatory aids as needed (educated on \T\ assisted with), Used gait belt as appropriate. Abuse screen: Denies threats or abuse. Nutritional screening: No deficits noted. Tuberculosis screening: No symptoms or risk factors identified. Assessment: 04:30 General: Appears in no apparent distress. comfortable, well groomed, well developed, pf1 Behavior is calm, cooperative, appropriate for age, quiet. 04:30 Pain: Complains of pain in right lower rib cage pain Pain does not radiate. Pain began pf1 since October. Neuro: No deficits noted. Level of Consciousness is awake, alert, obeys commands, Oriented to person, place, time, situation. Cardiovascular: Reports since October Denies chest pain, Capillary refill < 3 seconds Patient's skin is warm and dry. Respiratory: No deficits noted. Airway is patent Respiratory effort is even, unlabored, Respiratory pattern is regular, symmetrical, Breath sounds are clear bilaterally. GI: No deficits noted. No signs and/or symptoms were reported involving the gastrointestinal system. : No deficits noted. No signs and/or symptoms were reported regarding the genitourinary system. EENT: No deficits noted. No signs and/or symptoms were reported regarding the EENT system. Derm: No deficits noted. No signs and/or symptoms reported regarding the dermatologic system. Musculoskeletal: Reports pain in right lower ribcage pain since October 2023. 05:30 Reassessment: Patient appears in no apparent distress at this time. Patient and/or pf1 family updated on plan of care and expected duration. Pain level reassessed. Patient is alert, oriented x 3, equal unlabored respirations, skin warm/dry/pink. 06:30 Reassessment: Patient appears in no apparent distress at this time. Patient and/or pf1 family updated on plan of care and expected duration. Pain level reassessed. Patient is alert, oriented x 3, equal unlabored respirations, skin warm/dry/pink. Patient states symptoms have improved. 07:01 General: Appears in no apparent distress. comfortable, Behavior is calm, cooperative. rs5 Pain: Denies pain. Neuro: Level of Consciousness is awake, alert, obeys commands, Oriented to person, place, time, situation. Cardiovascular: Patient's skin is warm and dry. Respiratory: Respiratory effort is even, unlabored, Respiratory pattern is regular, symmetrical. GI: Abdomen is round non-distended, Abd is soft and non tender X 4 quads. : No signs and/or symptoms were reported regarding the genitourinary system. EENT: No signs and/or symptoms were reported regarding the EENT system. Derm: Skin is intact, Skin is pink, warm \T\ dry. Musculoskeletal: Circulation, motion, and sensation intact. 08:10 Reassessment: No changes from previously documented assessment. rs5 Vital Signs: 04:26 BP 145 / 105; Pulse 79; Resp 16; Temp 97.5; Pulse Ox 98% on R/A; Weight 72.57 kg; cm10 Height 5 ft. 9 in. ; Pain 3/10; 05:30 BP 110 / 70; Pulse 63; Resp 20; Pulse Ox 97% on R/A; pf1 06:30 BP 106 / 63; Pulse 58; Resp 14; Pulse Ox 97% on R/A; pf1 08:20 BP 115 / 72; Pulse 63; Resp 18; Pulse Ox 99% on R/A; rs5 04:26 Body Mass Index 23.63 (72.57 kg, 175.26 cm) cm10 04:26 Pain Scale: Adult cm10 [place] Coma Score: 19:16 Eye Response: spontaneous(4). Motor Response: obeys commands(6). Verbal Response: sp4 oriented(5). Total: 15. ED Course: 04:17 Patient arrived in ED. mr 04:17 Jaun Noble MD is Private Physician. mr 04:27 Triage completed. cm10 04:28 Arm band placed on Patient placed in an exam room, on a stretcher. cm10 04:30 Patient has correct armband on for positive identification. Placed in gown. Bed in low pf1 position. Call light in reach. 04:30 Patient maintains SpO2 saturation greater than 95% on room air. pf1 04:44 EKG done, by support services tech. pf1 04:45 Door closed. Noise minimized. Lights dimmed. Warm blanket given. pf1 04:47 Aleksander Pierre MD is Attending Physician. sp4 04:50 No provider procedures requiring assistance completed. Inserted saline lock: 22 gauge pf1 in right antecubital area, using aseptic technique. Blood collected. 04:50 Initial lab(s) drawn, by tx, sent to lab. pf1 04:51 CBC with Diff Sent. pf1 04:51 LFT's Sent. pf1 04:51 Magnesium Sent. pf1 04:51 NT PRO-BNP Sent. pf1 04:51 PT-INR Sent. pf1 04:51 Troponin HS Sent. pf1 04:51 Basic Metabolic Panel Sent. pf1 04:59 XRAY Chest (1 view) In Process Unspecified. EDMS 05:47 Carol Ricketts, RN is Primary Nurse. pf1 06:[address] via wheelchair. hb 06:48 CT Chest, Abdomen, Pelvis - W/Contrast In Process Unspecified. EDMS 07:00 Client placed on continuous cardiac and pulse oximetry monitoring. NIBP monitoring hb applied. gambling monitor on. Pulse ox on. NIBP on. 07:34 Hardy Gonzalez, RN is Primary Nurse. eb 08:21 Jaun Noble MD is Referral Physician. sp4 08:30 IV discontinued, intact, bleeding controlled, No redness/swelling at site. Pressure rs5 dressing applied. Administered Medications: No medications were administered Medication: 08:30 VIS not applicable for this client. rs5 Outcome: 08:22 Discharge ordered by . sp4 08:30 Discharged to home ambulatory, rs5 08:30 Condition: stable rs5 08:30 Discharge instructions given to patient, family, Instructed on discharge instructions, follow up and referral plans. Demonstrated understanding of instructions, follow-up care, 08:35 Patient left the ED. rs5 Signatures: Dispatcher [employer] [place], Reg Reg mr VelizAlma, CAROLYN RN Bonita Mccormick eb Carol Ricketts, CAROLYN LEON pf1 Hardy Gonzalez, RN RN rs5 Aleksander Pierre MD MD sp4 Aliya Hong RN RN cm10 Corrections: (The following items were deleted from the chart) 08:39 04:30 Pain: Complains of pain in right lower rib cage pain Pain began since October
[2024-01-17 09:09] VITALS: BP 106/63; TEMP 97.5; O2SAT 97
--- NOTE | 2024-01-17 18:22 | RAD REPORT ---
EXAM DESCRIPTION: Chest Single View CLINICAL HISTORY: CHEST PAIN COMPARISON: None TECHNIQUE: Single AP view of the chest. FINDINGS: Lung volumes adequate. Cardiac silhouette is normal in size. No pneumothorax. No large pleural effusion. No focal consolidation. No acute bony finding. IMPRESSION: No evidence of acute cardiopulmonary disease. Electronically signed by: Mikey Owens MD 01/17/2024 05:39 AM CDT Due to temporary technical issues with the PACS/Fluency reporting system, reports are being signed by the in house radiologists without review as a courtesy to insure prompt reporting. The interpreting radiologist is fully responsible for the content of the report.
--- NOTE | 2024-01-18 15:30 | EKG ---
Test Date: 2024-01-17 Test Time: 04:44:36 Electrical Machine Builder: TONJA MEASUREMENT RESULTS: Intervals: Rate: 69 NC: 178 QRSD: 104 QT: 384 QTc: 411 Helix: P: 70 NC: 178 QRS: 97 T: 64 INTERPRETIVE STATEMENTS: Normal sinus rhythm with sinus arrhythmia Rightward axis Borderline ECG No previous ECG available for comparison Electronically Signed On 01-18-24 15:29:43 CDT by Diogenes Rowley
== END ==
LOC: ER 04:15
DX: R07.89 Other chest pain (principal)
CPT/HCPCS: 36415; 71045; 71260; 74177; 80048; 80076; 83735; 83880; 84484; 85025; 85610; 93005; 99285; Q9967

== ENCOUNTER 2024-11-04 22:54 | Emergency (ER) | payer BC ==
--- OUTSIDE RECORDS SUMMARY | 2024-11-04 22:57 | XMS REPORT | Continuity of Care Document ---
Author Name Unknown Address [address] [place] [address] [facility] Address [address] [place] [address] Care Team Providers Care Set Designer Name Role Phone PCP, PATIENT DOES NOT HAVE A Primary Care Physic carroll Unavailable Jaun Noble Attending Clinician Unavailable CAITY THOMSON Attending Clinician Unavailab Caity Rao DO Attending Clinician [phone] PIERRE JONES Attending Clinician Unavailable Pierre Gonzalez Attending Clinician [phone] JOSH GREEN Attending Clinician Unavail able TRENTON BERGER Attending Clinician Unavailable Lab, Adc Fam Pob I Attending Clinician Unavailab JARRET James Attending Clinician Unavailable Robyn Chin PA-C Attending Clinician [phone] CAITY THOMSON Admitting Clinician Unavailab PIERRE Mcknight Admitting Clinician Unavailable Payers Payer Name Policy Type Policy Number Effective Date Expirati on Date Source [facility] [id number] 2021 00:00:00 Problems Condition Name Condition Details Condition Category Status Onset Date Resolution Date Last Treatment Date Treating Clinician Comments Source No known active problems No known active problems Disease [facility] [id number] Chronic prostatiti s Problem [facility] [id number] Gross hematuria Problem [facility] [id number] Lower urinary tract symptoms (LUTS) Problem [facility] [id number] Bilateral flank pain Problem [facility] [id number] Voiding dysfunctio n Problem [facility] [id number] Pelvic pain in male Problem [facility] Allergies, Adverse Reactions, Alerts Allergy Name Allergy Type Status Severity Reaction(s) Onset Date Inactive Date Treating Clinician Comments Source CLARITHR OMYCIN DRUG INGREDI Active Unknown-Cmnt 03-24 00:00: 00 General acute hospital Clarithr omycin Propensi ty to adverse reaction s Active Unknown - See comments 03-24 00:00: 00 General acute hospital clarithr omycin clarithr omycin Active Unknown [facility] NO KNOWN ALLERGIE S Drug Class Active General acute hospital Social History Social Habit Start Date Stop Date Quantity Comments Source Sex Assigned At [facility] History of Tobacco Use [facility] Alcohol intake 2022-06-03 00:00:00 2022-06-03 00:00:00 Current non-drinker of alcohol (finding) [facility] Exposure to SARS-CoV-2 (event) 2022-03-14 00:00:00 2022-03-24 11:41:00 Not sure [facility] Tobacco use and exposure 2019-01-20 00:00:00 2019-01-20 00:00:00 Smokeless tobacco non-user [facility] Smoking Status Start Date Stop Date Source Former Smoker 2022-11-21 00:00:00 2022-11-21 00:00:00 [facility] Occasional tobacco smoker 2019-01-20 00:00:00 [facility] Medications Ordered Medication Name Filled Medication Name Start Date Stop Date Current Medication? Ordering Clinician Indication Dosage Frequency Signature (SIG) Comments Components Source Alfuzosin HCl ER 10 MG Alfuzosin HCl ER 10 MG 2021-0 9- 00:00: 00 01-05 00:00 :00 No 1{table t_immed iately_ after_t he_same _meal} QD Alfuzosin HCl ER 10 MG Alfuzosin HCl ER 10 MG Alfuzosin HCl ER 10 MG 2021-0 07-10 00:00: 00 01-05 00:00 :00 No 1{table t_immed iately_ after_t he_same _meal} QD Alfuzosin HCl ER 10 MG Alfuzosin HCl ER 10 MG Alfuzosin HCl ER 10 MG 2021-0 07-10 00:00: 00 01-05 00:00 :00 No 1{table t_immed iately_ after_t he_same _meal} QD Alfuzosin HCl ER 10 MG Alfuzosin HCl ER 10 MG Alfuzosin HCl ER 10 MG 2021-0 07-10 00:00: 00 01-05 00:00 :00 No 1{table t_immed iately_ after_t he_same _meal} QD Alfuzosin HCl ER 10 MG Alfuzosin HCl ER 10 MG Alfuzosin HCl ER 10 MG 2021-0 07-10 00:00: 00 01-05 00:00 :00 No 1{table t_immed iately_ after_t he_same _meal} QD Alfuzosin HCl ER 10 MG iopamidol (ISOVUE 370-500 mL) injection 100 mL 03-24 19:45: 00 03-24 19:45 :00 No [id number] 100mL 100 mL, Intravenou s, ONCE, 1 dose, On 03/24/22 at 1445, Routine General acute hospital dicyclomine 20 mg tablet 03-24 00:00: 00 Yes [id number] 20mg Take 1 tablet by mouth 4 (four) times daily as needed for Abdominal pain. General acute hospital Vital Signs Vital Name Observation Time Observation Value Comments S ource height 2022-08-08 10:30:00 69 [in_i] Commo n [facility] weight 2022-08-08 10:30:00 157 [lb_av] [facility] temperature 2022-08-08 10:30:00 98.4 [degF] Com mon [facility] bmi 2022-08-08 10:30:00 23.18 kg/m2 [facility] oximetry 2022-08-08 10:30:00 96 % Commo n [facility] blood pressure systolic 2022-08-08 10:30:00 125 mm[Hg] Common [facility] blood pressure diastolic 2022-08-08 10:30:00 77 mm[Hg] [facility] height 2022-07-10 16:30:00 69 [in_i] Commo n [facility] weight 2022-07-10 16:30:00 157.4 [lb_av] Co mmon [facility] temperature 2022-07-10 16:30:00 98.4 [degF] Com mon [facility] bmi 2022-07-10 16:30:00 23.24 kg/m2 Comm on [facility] oximetry 2022-07-10 16:30:00 99 % Commo n [facility] respiratory rate 2022-07-10 16:30:00 18 /min [facility] blood pressure systolic 2022-07-10 16:30:00 130 mm[Hg] Common [facility] blood pressure diastolic 2022-07-10 16:30:00 65 mm[Hg] [facility] Heart rate 2022-06-03 19:00:00 58 /min [facility] Oxygen saturation in Arterial blood by Pulse oximetry 2022-06-03 19:00:00 96 /min [facility] Systolic blood pressure 2022-06-03 19:00:00 116 mm[Hg] [facility] Diastolic blood pressure 2022-06-03 19:00:00 71 mm[Hg] [facility] Body temperature 2022-06-03 17:23:00 36 Stephanie [facility] Respiratory rate 2022-06-03 17:23:00 18 /min [facility] Body height 2022-06-03 17:23:[address] [facility] Body weight 2022-06-03 17:23:[address] [facility] BMI 2022-06-03 17:23:00 22.96 kg/m2 [facility] Systolic blood pressure 2022-03-24 19:07:03 114 mm[Hg] [facility] Diastolic blood pressure 2022-03-24 19:07:03 72 mm[Hg] [facility] Heart rate 2022-03-24 19:07:03 84 /min [facility] Respiratory rate 2022-03-24 19:07:03 18 /min [facility] Oxygen saturation in Arterial blood by Pulse oximetry 2022-03-24 19:07:03 97 /min [facility] Body temperature 2022-03-24 16:42:00 36.72 Stephanie [facility] Body weight 2022-03-24 16:42:[address] [facility] BMI 2022-03-24 16:42:00 23.63 kg/m2 [facility] Procedures Procedure Date / Time Performed Performing Clinician Source COMP. METABOLIC PANEL (71538) 2022-06-03 18:15:00 Caity Thomson [facility] CBC WITH DIFF 2022-06-03 18:15:00 [facility] 2022-06-03 18:15:[facility] 2022-06-03 18:09:16 Caity Thomson [facility] CONSENT/REFUSAL FOR DIAGNOSIS AND TREATMENT 2022-06-03 17:10:16 Doctor Unassigned, [place] [facility] CT ABDOMEN PELVIS W CONTRAST 2022-03-24 18:34:32 Pierre Jones [facility] LIPASE 2022-03-24 17:06:[address] [facility] COMP. METABOLIC PANEL (10726) 2022-03-24 17:06:00 Pierre Jones [facility] CBC WITH DIFF 2022-03-24 17:06:00 Pierre Jones [facility] PROTHROMBIN TIME / INR 2022-03-24 17:06:00 Tory Jones [facility] URINALYSIS 2022-03-24 17:06:[address] [facility] Encounters Start Date/Time End Date/Time Encounter Type Admission Type Attending Clinicians Care Facility Care Department Encounter ID Source 2022-07-10 16:09:04 Outpatient Jaun Noble [facility] ST[facility] [id number] [facility] 2022-12-09 00:00:00 2022-12-09 00:00:00 (TEL) [facility]ML[facility] [id number] [facility] 2022-11-21 00:00:00 2022-11-21 00:00:00 ([place]) Nurse Visit [facility] [id number] [facility] 2022-09-10 00:00:00 2022-09-10 00:00:00 (TEL) [facility]LMLC [facility] [id number] [facility] 2022-08-08 00:00:00 2022-08-08 00:00:00 OFFICE VISIT EST PT LEVEL 3 [facility] ST[facility] [id number] [facility] 2022-07-26 00:00:00 2022-07-26 00:00:00 (TEL) STLMLC ST[facility]C [id number] [facility] 2022-07-22 00:00:00 2022-07-22 00:00:00 (TEL) STLMLC ST[facility]C [id number] [facility] 2022-07-10 00:00:00 2022-07-10 00:00:00 OFFICE VISIT EST PT LEVEL 3 [facility] STL[facility]C [id number] [facility] 2022-06-03 12:25:00 2022-06-03 14:11:00 Emergency X CAITY THOMSON [facility] ERT [id number] General acute hospital 2022-06-03 12:25:00 2022-06-03 14:11:00 Emergency Caity Thomson [facility] 1.840.114 [id number] [id number] [id number] General acute hospital 2022-03-24 11:44:00 2022-03-24 14:51:00 Emergency X PIERRE JONES [facility] ERT [id number] General acute hospital 2022-03-24 11:44:00 2022-03-24 14:51:00 Emergency Pierre Jones [facility] 1.840.114 350.1.13.10 [id number] [id number] General acute hospital 2021-03-12 10:20:00 2021-03-12 10:36:[address] [facility] [id number] General acute hospital 2021-03-10 10:20:00 2021-03-10 10:20:[address] [facility] [id number] General acute hospital 2021-02-17 10:30:00 2021-02-17 10:15:[address] [facility] [id number] General acute hospital 2021-01-04 11:04:20 2021-01-04 11:24:20 Laboratory Only Lab, Adc Fam Pob I [facility] [address] 1.840.114 350.1.13.10 4.2.7.2.686 [id number] 2021-01-04 11:00:00 2021-01-04 11:00:[address] [facility] [id number] General acute hospital 2019-12-10 21:02:52 2019-12-10 21:17:52 Urgent Care [facility] 1.2.840.114 [id number] [id number] [id number] Results Test Description Test Time Test Comments Results Result Co mments Source [facility]:37:27* Test Item Value Reference Range Interpretation Comme nts LIPASE (test code = 0967043485) 49 U/L 0-220 Lab Interpretation (test cod e = 31318-6) Normal [facility] / [id number] 17:35:06* Test Item Value Reference Range Interpretation Comme nts PROTIME PATIENT (test code = 5964-2) See_Comment [Automated [employer]] The system which generated this result transmitted reference range: 10.1 - 12.6 Seconds. The reference range was not used to interpret this result as normal/abnormal. INR (test code = 6301-6) Normal INR <1.1; Warfarin Therapeutic range 2.0 to 3.0 or 2.5 to 3.5, depending upon the indications. Lab Interpretation (test code = 89697-2) [facility] [id number] 17:23:48* Test Item Value Reference Range Interpretation Comme nts WBC (test code = 6690-2) See_Comment [Automated [employer]] The system which generated this result transmitted reference range: 4.20 - 10.70 10*3/?L. The reference range was not used to interpret this result as normal/abnormal. RBC (test code = 789-8) See_Comment [Automated [employer]] The system which generated this result transmitted [...] g/dL 31.2-35.0 H RDW-SD (test code = 20867-4) 35.5 fL 38.5-51.6 L RDW-CV (test code = 788-0) 11.9 % 12.1-15.4 L PLT (test code = 777-3) See_Comment [Automated messa ge] The system which generated this result transmitted reference range: 150 - 328 10*3/?L. The reference range was not used to interpret this result as normal/abnormal. MPV (test code = 79801-2) 9.8 fL 9.8-13.0 NRBC/100 WBC (test code = 1003976159) See_Comment [Automated [employer]] The system which generated this result transmitted reference range: 0.0 - 10.0 /100 WBCs. The reference range was not used to interpret this result as normal/abnormal. NRBC x10^3 (test code = 0021895153) <0.01 See_Comment [Automated messa ge] The system which generated this result transmitted reference range: 10*3/?L. The reference range was not used to interpret this result as normal/abnormal. GRAN MAT (NEUT) % (test code = 770-8) 73.2 % IMM GRAN % (test code = 9322434491) 0.30 % LYMPH % (test code = 736-9) 19.3 % MONO % (test code = 5905-5) 5.5 % EOS % (test code = 713-8) 1.2 % BASO % (test code = 706-2) 0.5 % GRAN MAT x10^3(ANC) (test code = 4868855145) 4.69 10*3/uL 1.99-6.95 IMM GRAN x10^3 (test code = 1797713171) <0.03 0.00-0.06 LYMPH x10^3 (test code = 731-0) 1.24 10*3/uL 1.09-3.23 MONO x10^3 (test code = 742-7) 0.35 10*3/uL 0.36-1.02 L EOS x10^3 (test code = 711-2) 0.08 10*3/uL 0.06-0.53 BASO x10^3 (test code = 704-7) 0.03 10*3/uL 0.01-0.09 Lab Interpretation (test code = 16696-7) Abnormal [facility]
--- NOTE | 2024-11-05 01:35 | EDPHYS ---
Physician Documentation [facility] Name: Akbar Hidalgo Age: 34 yrs Sex: Male : 1990 Arrival Date: 11/04/2024 Time: 22:54 Bed IW10 Private MD: ED Physician Aleksander Pierre HPI: 11/04 23:04 This 34 yrs old Male presents to ER via Unassigned with complaints of Arm sp4 Pain, LEFT ARM TIGHTNESS. 11/05 01:41 Patient presents with acute left arm tightness and discomfort.. sp4 - Family history:: not pertinent. ROS: 01:41 Constitutional: Negative for fever, chills, and weight loss, positive left arm sp4 discomfort 01:41 All other systems are negative, Exam: 01:41 Constitutional: This is a well developed, well nourished patient who is awake, alert, sp4 and in no acute distress. Head/Face: Normocephalic, atraumatic. Eyes: Pupils equal round and reactive to light, extra-ocular motions intact. Lids and lashes normal. Conjunctiva and sclera are not injected. Cornea within normal limits. Periorbital areas with no swelling, redness, or edema. ENT: Nares patent. No nasal discharge, no septal abnormalities noted. Tympanic membranes are normal and external auditory canals are clear. Oropharynx with no redness, swelling, or masses, exudates, or evidence of obstruction, uvula midline. Mucous membranes moist. Neck: Trachea midline, no thyromegaly or masses palpated, and no cervical lymphadenopathy. Supple, full range of motion without nuchal rigidity, or vertebral point tenderness. Chest/axilla: Normal chest wall appearance and motion. Nontender with no deformity. No lesions are appreciated. Cardiovascular: Regular rate and rhythm with a normal S1 and S2. No gallops, murmurs, or rubs. Normal PMI, no JVD. No pulse deficits. Respiratory: Lungs have equal breath sounds bilaterally, clear to auscultation and percussion. No rales, rhonchi or wheezes noted. No increased work of breathing, no retractions or nasal flaring. Abdomen/GI: Soft, with normal bowel sounds. No distension or tympany. No guarding or rebound. No evidence of tenderness throughout. Back: No spinal tenderness. No costovertebral tenderness. Skin: Warm, dry with normal turgor. Normal color with no rashes, no lesions, and no evidence of cellulitis. MS/ Extremity: Pulses equal, no cyanosis. Neurovascular intact. Full, normal range of motion. Neuro: Awake and alert, GCS 15, oriented to person, place, time, and situation. Cranial nerves II-XII grossly intact. Motor strength 5/5 in all extremities. Sensory grossly intact. MDM: 11/04 23:05 Medical Screening Exam initiated sp4 11/05 01:41 Differential diagnosis: contusion, abrasion, tendonitis. Data reviewed: vital signs, sp4 nurses notes. ED course: Patient found stable for discharge home.. 11/04 23:05 Order name: EKG; Complete Time: 23:05 sp4 11/04 23:05 Order name: EKG - Nurse/Tech sp4 Administered Medications: No medications were administered Disposition Summary: 11/05/24 01:35 Discharge Ordered Notes: Location: Home sp4 Problem: new sp4 Symptoms: have improved sp4 Condition: Stable sp4 Diagnosis - Acute left arm pain, acute left arm paresthesia sp4 Followup: sp4 - With: Private Physician - When: 7 - 10 days - Reason: Recheck today's complaints Discharge Instructions: - Discharge Summary Sheet sp4 - Paresthesia, [id number] sp4 Forms: - Patient Portal Instructions sp4 Signatures: Aleksander Pierre MD MD sp4
--- NOTE | 2024-11-05 01:35 | ER ---
Nurse's Notes [facility] Name: Akbar Hidalgo Age: 34 yrs Sex: Male : 1990 Arrival Date: 11/04/2024 Time: 22:54 Bed IW10 Private MD: Diagnosis: Acute left arm pain, acute left arm paresthesia - Family history:: not pertinent. ED Course: 11/04 22:57 Patient arrived in ED. gm2 23:04 Aleksander Pierre MD is Attending Physician. sp4 23:38 Patient's name was called from ER [employer]. No response. Unable to locate patient. Will vc1 disposition as left without being seen by a provider. Administered Medications: No medications were administered Outcome: 11/05 01:35 Discharge ordered by . sp4 01:45 Eloped from waiting room, after seeing physician Time discovered patient gone: November at 23:38 01:45 Condition: good 01:45 Patient left the ED. vc1 Signatures: Ayleen Pearce RN RN vc1 Aleksander Pierre MD MD sp4 [facility] 2
== END 2024-11-05 01:45 | disposition home or self-care (01) ==
LOC: ER 22:54
DX: M79.602 Pain in left arm (principal); R20.2 Paresthesia of skin

== ENCOUNTER 2025-01-16 11:18 | Emergency (ER) | payer BC ==
--- OUTSIDE RECORDS SUMMARY | 2025-01-16 11:20 | XMS REPORT | Continuity of Care Document ---
Author Name Unknown Address [address] [facility] [address] [place] [address] [facility] Address [address] [facility] [address] [place] [address] Care Team Providers Care Coating Mixer Supervisor Name Role Phone PCP, PATIENT DOES NOT HAVE A Primary Care Physic carroll Unavailable Jaun Noble Attending Clinician Unavailable CAITY THOMSON Attending Clinician Unavailab Caity Rao DO Attending Clinician [phone] PIERRE JONES Attending Clinician Unavailable Pierre Gonzalez Attending Clinician [phone] JOSH GREEN Attending Clinician Unavail able TRENTON BERGER Attending Clinician Unavailable Lab, Adc Fam Pob I Attending Clinician Unavailab JARRET James Attending Clinician Unavailable Robyn Chin PA-C Attending Clinician [phone] CAITY THOMSON Admitting Clinician Unavailab PIERRE Mcknight Admitting Clinician Unavailable Payers Payer Name Policy Type Policy Number Effective Date Expirati on Date Source [facility] [id number] 2021 00:00:00 Problems Condition Name Condition Details Condition Category Status Onset Date Resolution Date Last Treatment Date Treating Clinician Comments Source No known active problems No known active problems Disease [facility] [id number] Chronic prostatiti s Problem [facility] [id number] Gross hematuria Problem [facility] [id number] Lower urinary tract symptoms (LUTS) Problem [facility] [id number] Bilateral flank pain Problem [facility] [id number] Voiding dysfunctio n Problem [facility] [id number] Pelvic pain in male Problem [facility] Allergies, Adverse Reactions, Alerts Allergy Name Allergy Type Status Severity Reaction(s) Onset Date Inactive Date Treating Clinician Comments Source CLARITHR OMYCIN DRUG INGREDI Active Unknown-Cmnt 03-24 00:00: 00 [facility] Clarithr omycin Propensi ty to adverse reaction s Active Unknown - See comments 03-24 00:00: 00 [facility] clarithr omycin clarithr omycin Active Unknown [facility] NO KNOWN ALLERGIE S Drug Class Active [facility] Social History Social Habit Start Date Stop Date Quantity Comments Source Sex Assigned At [facility] History of Tobacco Use [facility] Alcohol intake 2022-06-03 00:00:00 2022-06-03 00:00:00 Current non-drinker of alcohol (finding) [facility] Exposure to SARS-CoV-2 (event) 2022-03-14 00:00:00 2022-03-24 11:41:00 Not sure [facility] Tobacco use and exposure 2019-01-20 00:00:00 2019-01-20 00:00:00 Smokeless tobacco non-user [facility] Smoking Status Start Date Stop Date Source Former Smoker 2022-11-21 00:00:00 2022-11-21 00:00:00 [facility] Occasional tobacco smoker 2019-01-20 00:00:00 [facility] Medications Ordered Medication Name Filled Medication Name Start Date Stop Date Current Medication? Ordering Clinician Indication Dosage Frequency Signature (SIG) Comments Components Source Alfuzosin HCl ER 10 MG Alfuzosin HCl ER 10 MG 2021-0 9 00:00: 00 01-05 00:00 :00 No 1{table [...] 03-24 19:45: 00 03-24 19:45 :00 No [id number] 100mL 100 mL, Intravenou s, ONCE, 1 dose, On 03/24/22 at 1445, Routine [facility] dicyclomine 20 mg tablet 03-24 00:00: 00 Yes [id number] 20mg Take 1 tablet by mouth 4 (four) times daily as needed for Abdominal pain. [facility] Vital Signs Vital Name Observation Time Observation Value Comments S ource height 2022-08-08 10:30:00 69 [in_i] [facility] weight 2022-08-08 10:30:00 157 [lb_av] [facility] temperature 2022-08-08 10:30:00 98.4 [degF] Com mon [facility] bmi 2022-08-08 10:30:00 23.18 kg/m2 [facility] oximetry 2022-08-08 10:30:00 96 % Commo n [facility] blood pressure systolic 2022-08-08 10:30:00 125 mm[Hg] [facility] blood pressure diastolic 2022-08-08 10:30:00 77 mm[Hg] [facility] height 2022-07-10 16:30:00 69 [in_i] Commo n [facility] weight 2022-07-10 16:30:00 157.4 [lb_av] Co mmon [facility] temperature 2022-07-10 16:30:00 98.4 [degF] Com mon [facility] bmi 2022-07-10 16:30:00 23.24 kg/m2 Comm on [facility] oximetry 2022-07-10 16:30:00 99 % Commo n [facility] respiratory rate 2022-07-10 16:30:00 18 /min [facility] blood pressure systolic 2022-07-10 16:30:00 130 mm[Hg] [facility] blood pressure diastolic 2022-07-10 16:30:00 65 mm[Hg] [facility] Heart rate 2022-06-03 19:00:00 58 /min [facility] Oxygen saturation in Arterial blood by Pulse oximetry 2022-06-03 19:00:00 96 /min [facility] Systolic blood pressure 2022-06-03 19:00:00 116 mm[Hg] [facility] Diastolic blood pressure 2022-06-03 19:00:00 71 mm[Hg] [facility] Body temperature 2022-06-03 17:23:00 36 Stephanie [facility] Respiratory rate 2022-06-03 17:23:00 18 /min [facility] Body height 2022-06-03 17:23:00 177.8 cm [facility] Body weight 2022-06-03 17:23:00 72.576 kg [facility] BMI 2022-06-03 17:23:00 22.96 kg/m2 [facility] Systolic blood pressure 2022-03-24 19:07:03 114 mm[Hg] [facility] Diastolic blood pressure 2022-03-24 19:07:03 72 mm[Hg] [facility] Heart rate 2022-03-24 19:07:03 84 /min [facility] Respiratory rate 2022-03-24 19:07:03 18 /min [facility] Oxygen saturation in Arterial blood by Pulse oximetry 2022-03-24 19:07:03 97 /min [facility] Body temperature 2022-03-24 16:42:00 36.72 Stephanie [facility] Body weight 2022-03-24 16:42:00 72.576 kg [facility] BMI 2022-03-24 16:42:00 23.63 kg/m2 [facility] Procedures Procedure Date / Time Performed Performing Clinician Source COMP. METABOLIC PANEL (63256) 2022-06-03 18:15:00 Caity Thomson [facility] CBC WITH DIFF 2022-06-03 18:15:00 [facility] 2022-06-03 18:15:00 [facility] CONTRAST 2022-06-03 18:09:16 Caity Thomson [facility] CONSENT/REFUSAL FOR DIAGNOSIS AND TREATMENT 2022-06-03 17:10:16 Doctor Unassigned, [place] CT ABDOMEN PELVIS W CONTRAST 2022-03-24 18:34:32 Pierre Jones [facility] LIPASE 2022-03-24 17:06:00 Pierre Jones [facility] COMP. METABOLIC PANEL (06662) 2022-03-24 17:06:00 Pierre Jones [facility] CBC WITH DIFF 2022-03-24 17:06:00 Pierre Jones [facility] PROTHROMBIN TIME / INR 2022-03-24 17:06:00 Tory Jones [facility] URINALYSIS 2022-03-24 17:06:00 Pierre Jones [facility] Encounters Start Date/Time End Date/Time Encounter Type Admission Type Attending [facility] Care Department Encounter ID Source 2022-07-10 16:09:04 Outpatient Jaun Noble [facility] STL[facility] [id number] [facility] 2022-12-09 00:00:00 2022-12-09 00:00:00 (TEL) [facility]LMLC [facility] [id number] [facility] 2022-11-21 00:00:00 2022-11-21 00:00:00 ([place]) Nurse Visit STLMLC ST[facility] [id number] [facility] 2022-09-10 00:00:00 2022-09-10 00:00:00 (TEL) STLMLC STLMLC [id number] [facility] 2022-08-08 00:00:00 2022-08-08 00:00:00 OFFICE VISIT EST PT LEVEL 3 STLMLC STLMLC [id number] [facility] 2022-07-26 00:00:00 2022-07-26 00:00:00 (TEL) STLMLC STLMLC [id number] [facility] 2022-07-22 00:00:00 2022-07-22 00:00:00 (TEL) STLMLC STLMLC [id number] [facility] 2022-07-10 00:00:00 2022-07-10 00:00:00 OFFICE VISIT EST PT LEVEL 3 [facility]LMLC STLMLC [id number] [facility] 2022-06-03 12:25:00 2022-06-03 14:11:00 Emergency X CAITY THOMSON [facility] ERT [id number] [facility] 2022-06-03 12:25:00 2022-06-03 14:11:00 Emergency Caity Thomson [facility] [id number] [facility] 2022-03-24 11:44:00 2022-03-24 14:51:00 Emergency X PIERRE JONES [facility] ERT [id number] [facility] 2022-03-24 11:44:00 2022-03-24 14:51:00 Emergency Pierre Jones [facility] [id number] [facility] 2021-03-12 10:20:00 2021-03-12 10:36:10 Outpatient JOSH LALA [facility] [id number] [facility] 2021-03-10 10:20:00 2021-03-10 10:20:00 Outpatient [facility] [id number] [facility] 2021-02-17 10:30:00 2021-02-17 10:15:38 Outpatient TRENTON GRANADO [facility] [id number] [facility] 2021-01-04 11:04:20 2021-01-04 11:24:20 Laboratory Only Lab, Adc Fam Pob I [facility] [address] [facility] [id number] [id number] 2021-01-04 11:00:00 2021-01-04 11:00:00 Outpatient JARRET GRAY [facility] [id number] [facility] 2019-12-10 21:02:52 2019-12-10 21:17:52 Urgent Care Robyn Chin [facility] [id number] Results Test Description Test Time Test Comments Results Result Co mments Source [facility] 17:37:27* Test Item Value Reference Range Interpretation Comme nts LIPASE (test code = 2955972544) 49 U/L 0-220 Lab Interpretation (test cod e = 44629-0) Normal [facility] / [id number] 17:35:06* Test Item Value Reference Range Interpretation Comme nts PROTIME PATIENT (test code = 5964-2) See_Comment [Automated [employer] Curves] The system which generated this result transmitted reference range: 10.1 - 12.6 Seconds. The reference range was not used to interpret this result as normal/abnormal. INR (test code = 6301-6) Normal INR <1.1; Warfarin Therapeutic range 2.0 to 3.0 or 2.5 to 3.5, depending upon the indications. Lab Interpretation (test code = 53162-7) Normal [facility] [id number] 17:23:48* Test Item Value Reference Range Interpretation Comme nts WBC (test code = 6690-2) See_Comment [Automated [employer] Curves] The system which generated this result transmitted reference range: 4.20 - 10.70 10*3/?L. The reference range was not used to interpret this result as normal/abnormal. RBC (test code = 789-8) See_Comment [Automated [employer] Curves] The system which generated this result transmitted [...] g/dL 31.2-35.0 H RDW-SD (test code = 31704-3) 35.5 fL 38.5-51.6 L RDW-CV (test code = 788-0) 11.9 % 12.1-15.4 L PLT (test code = 777-3) See_Comment [Automated messa ge] The system which generated this result transmitted reference range: 150 - 328 10*3/?L. The reference range was not used to interpret this result as normal/abnormal. MPV (test code = 75987-1) 9.8 fL 9.8-13.0 NRBC/100 WBC (test code = 9750947497) See_Comment [Automated [email or web address] ssage] The system which generated this result transmitted reference range: 0.0 - 10.0 /100 WBCs. The reference range was not used to interpret this result as normal/abnormal. NRBC x10^3 (test code = 5499392765) <0.01 See_Comment [Automated messa ge] The system which generated this result transmitted reference range: 10*3/?L. The reference range was not used to interpret this result as normal/abnormal. GRAN MAT (NEUT) % (test code = 770-8) 73.2 % IMM GRAN % (test code = 7860520594) 0.30 % LYMPH % (test code = 736-9) 19.3 % MONO % (test code = 5905-5) 5.5 % EOS % (test code = 713-8) 1.2 % BASO % (test code = 706-2) 0.5 % GRAN MAT x10^3(ANC) (test code = 2580655402) 4.69 10*3/uL 1.99-6.95 IMM GRAN x10^3 (test code = 7289610748) <0.03 0.00-0.06 LYMPH x10^3 (test code = 731-0) 1.24 10*3/uL 1.09-3.23 MONO x10^3 (test code = 742-7) 0.35 10*3/uL 0.36-1.02 L EOS x10^3 (test code = 711-2) 0.08 10*3/uL 0.06-0.53 BASO x10^3 (test code = 704-7) 0.03 10*3/uL 0.01-0.09 Lab Interpretation (test code = 36887-1) Abnormal [facility]
--- NOTE | 2025-01-16 11:55 | EDPHYS ---
Physician Documentation [facility] Name: Akbar Hidalog Age: 34 yrs Sex: Male : 1990 Arrival Date: 01/16/2025 Time: 11:18 Bed 12 Private MD: ED Physician Scotty Velez HPI: 01/16 11:45 This 34 yrs old Male presents to ER via Ambulatory with complaints of Arm Pain, arm bo1 swelling. 11:45 The patient or guardian complains of decreased range of motion, injury, swelling, bo1 tenderness, Pt had lifted his 2yo child [employer] and noticed pain and swelling to insertion of the triceps tendon. The complaints affect the left antecubital area. Context: resulted from lifting or pulling, a person, His 2 yo child, mother's is at work. Onset: The symptoms/episode began/occurred suddenly. The patient has experienced similar episodes in the past, Pt has had injury 3 months ago, under care of Dr Cuello and a recent MRI in January 2025 - 7th: triceptal tendonitis. Historical: - Allergies: 11:28 Biaxin; cm10 - PMHx: 11:28 Irritable bowel syndrome; cm10 - Immunization history:: Adult Immunizations up to date. - Infectious Disease History:: Denies. - Social history:: Smoking status: Patient denies any tobacco usage or history of. ROS: 11:48 Constitutional: Negative for fever, chills, and weight loss bo1 11:48 MS/extremity: Positive for injury or acute deformity, decreased range of motion, pain, swelling, of the left arm, 11:48 Skin: Negative for rash, 11:48 Neuro: Negative for numbness, tingling, Exam: 11:49 Constitutional: This is a well developed, well nourished patient who is awake, alert, bo1 and in no acute distress. 11:49 Constitutional: The patient appears alert, awake, comfortable, 11:49 Musculoskeletal/extremity: Extremities: grossly normal except: noted in the left arm: pain, swelling, tenderness, at the insertion of the triceps tendon, Vital Signs: 11:27 BP 133 / 87; Pulse 75; Resp 15; Temp 97.8; Pulse Ox 100% ; Weight 71.21 kg; Height 5 cm10 ft. 9 in. ; Pain 5/10; 11:27 Body Mass Index 23.18 (71.21 kg, 175.26 cm) cm10 11:27 Pain Scale: Adult cm10 MDM: 11:29 Medical Screening Exam initiated bo1 11:50 Differential diagnosis: tendonitis. Data reviewed: vital signs. I considered the bo1 following discharge prescriptions or medication management in the emergency department Medications were administered in the Emergency Department. See MAR. ED course: F/U with his MD and consider restart of the PT. 01/16 11:51 Order name: Shahram wrap-joint; Complete Time: 11:56 bo1 01/16 11:51 Order name: Arm-Sling; Complete Time: 12:22 bo1 Administered Medications: 12:22 Drug: predniSONE PO 40 mg PO once Route: PO; cm10 12:22 Follow up: Response: Medication administered at discharge. cm10 Disposition Summary: 01/16/25 11:54 Discharge Ordered Notes: Location: Home bo1 Problem: an acute exacerbation bo1 Symptoms: are unchanged bo1 Condition: Stable bo1 Diagnosis - Other injury of muscle, fascia and tendon of triceps, left arm, initial encounter bo1 Followup: bo1 - With: Private Physician - When: Upon discharge from the Emergency Department - Reason: Recheck today's complaints, Continuance of care Discharge Instructions: - Discharge Summary Sheet bo1 - Distal Triceps Tendon Tear bo1 Forms: - Medication Reconciliation Form bo1 - Antibiotic Education bo1 - Prescription Opioid Use bo1 - Patient Portal Instructions bo1 - Leadership Thank You Letter bo1 Prescriptions: - Prednisone 20 mg Oral Tablet - take 2 tablets ORAL route once daily for 5 days; 10 tablet; Refills: 0, Product bo1 Selection Permitted Signatures: Aliya Hong, RN RN cm10 OeiScotty MD MD bo1
--- NOTE | 2025-01-16 11:55 | ER ---
Nurse's Notes [facility] Name: Akbar Hidalgo Age: 34 yrs Sex: Male : 1990 Arrival Date: 01/16/2025 Time: 11:18 Bed 12 Private MD: Diagnosis: Other injury of muscle, fascia and tendon of triceps, left arm, initial encounter Presentation: 01/16 11:27 Chief complaint: Patient states: Left forearm pain and swelling. pt states having an cm10 MRI done last week due to the pain. Pt states that today he picked his daughter up and started having pain again. Coronavirus screen: Client denies travel out of the [place] in the last 14 days. Ebola Screen: Patient denies travel to an Ebola-affected area in the 21 days before illness onset. Initial Sepsis Screen: Does the patient meet any 2 criteria? No. Patient's initial sepsis screen is negative. Does the patient have a suspected source of infection? No. Patient's initial sepsis screen is negative. Risk Assessment: Do you want to hurt yourself or someone else? Patient reports no desire to harm self or others. Onset of symptoms was January 16, 2025. 11:27 Method Of Arrival: Ambulatory cm10 11:27 Acuity: NARENDRA 4 cm10 Triage Assessment: 11:28 General: Appears in no apparent distress. comfortable, Behavior is calm, cooperative. cm10 Pain: Complains of pain in dorsal aspect of left forearm Pain currently is 5 out of 10 on a pain scale. Neuro: No deficits noted. Level of Consciousness is awake, alert, obeys commands, Oriented to person, place, time, situation, Appropriate for age. Respiratory: No deficits noted. Airway is patent Respiratory effort is even, unlabored, Respiratory pattern is regular, symmetrical. Historical: - Allergies: 11:28 Biaxin; cm10 - PMHx: 11:28 Irritable bowel syndrome; cm10 - Immunization history:: Adult Immunizations up to date. - Infectious Disease History:: Denies. - Social history:: Smoking status: Patient denies any tobacco usage or history of. Screenin:23 [facility] ED Fall Risk Assessment (Adult) History of falling in the last 3 months, cm10 including since admission No falls in past 3 months (0 pts) Confusion or Disorientation No (0 pts) Intoxicated or Sedated No (0 pts) Impaired Gait No (0 pts) Mobility Assist Device Used No (0 pt) Altered Elimination No (0 pt) Score/Fall Risk Level 0 - 2 = Low Risk Oriented to surroundings, Maintained a safe environment, Hourly rounding (assess needs \T\ fall precautionary measures) done. Abuse screen: Denies threats or abuse. Denies injuries from another. Nutritional screening: No deficits noted. Tuberculosis screening: No symptoms or risk factors identified. Vital Signs: 11:27 BP 133 / 87; Pulse 75; Resp 15; Temp 97.8; Pulse Ox 100% ; Weight 71.21 kg; Height 5 cm10 ft. 9 in. ; Pain 5/10; 11:27 Body Mass Index 23.18 (71.21 kg, 175.26 cm) cm10 11:27 Pain Scale: Adult cm10 ED Course: 11:21 Patient arrived in ED. al6 11:22 Scotty Velez MD is Attending Physician. bo1 11:28 Triage completed. cm10 11:28 Arm band placed on right wrist. Patient placed in an exam room, on a stretcher. cm10 12:23 Patient has correct armband on for positive identification. Provided Education on: cm10 Follow-up instructions. 12:23 No provider procedures requiring assistance completed. Patient did not have IV access cm10 during this emergency room visit. Shahram wrap to left arm Sling applied to left arm. Administered Medications: 12:22 Drug: predniSONE PO 40 mg PO once Route: PO; cm10 12:22 Follow up: Response: Medication administered at discharge. cm10 Medication: 12:23 VIS not applicable for this client. cm10 Outcome: 11:54 Discharge ordered by . bo1 12:23 Discharged to home ambulatory, cm10 12:23 Condition: good 12:23 Discharge instructions given to patient, Instructed on discharge instructions, follow up and referral plans. medication usage, Demonstrated understanding of instructions, follow-up care, medications, Prescriptions given X 1, 12:24 Patient left the ED. cm10 Signatures: Aliya Hong, RN RN cm10 Scotty Velez MD MD bo1 Angelia Cooper al6
[2025-01-16] MEDS ORDERED: predniSONE 20 MG TAB ONE (12:11)
[2025-01-16 12:34] VITALS: BP 133/87; TEMP 97.8; O2SAT 100
== END 2025-01-16 12:24 | disposition home or self-care (01) ==
LOC: ER 11:18
DX: S46.392A Other injury of muscle, fascia and tendon of triceps, left arm, initial encounter (principal)
CPT/HCPCS: 99283; J7512